=== PATIENT | male | born 1940 | race Caucasian/White ===

== ENCOUNTER 2019-10-07 08:17 | Day surgery (SDC) | payer OTHER, SELFPAY ==
[2019-10-07 09:10] VITALS: BP 124/76; PULSE 67; RESP 20; TEMP 36.5; O2SAT 97
[2019-10-07 09:13] VITALS: BMI 22.6
[2019-10-07] MEDS: PROPARACAINE 0.5% OPHTH SOL 2 DROPS EYE-OP (09:17)
[2019-10-07] MEDS: CATARACT EYE COMPOUND (10 DROPS/SYRINGE) 3 DROPS EYE-OP (09:21)
[2019-10-07 09:27] VITALS: BP 126/72; PULSE 67; RESP 20; TEMP 36.5; O2SAT 97
--- NOTE | 2019-10-07 10:06 | PM.PREOP ---
Pre-operative Note Interval Note History & Physical reviewed/Exam performed by Physician: No Changes to H&P: No
--- NOTE | 2019-10-07 10:06 | PM.OP.1 ---
Operative Date/Time/Diagnoses Pre-op diagnosis: Nuclear Cataract Left eye Post-op diagnosis: same Procedure & Clinicians Surgeon: Silvino Arvizu Anesthesia Type: MAC +/- and Sedation Operative Notes Procedure in detail: Patient brought to the operating suite. Tetracaine drops placed in the left eye. Patient was prepped and draped in sterile manner. Wire lid speculum was placed in the eye. Betadine drops were placed on the eye. This was irrigated. Lidocaine jelly was placed on the eye. A paracentesis port was created with a side-port blade. 0.1 mL 1% preservative free lidocaine was injected into the anterior chamber. The anterior chamber was deepened with viscoelastic. 2.6 mm keratome was used to create a temporal clear corneal incision. Cystotome and Utrata forceps were used to create continuous tear capsulorrhexis. Balanced salt solution was used to hydro dissect the nucleus. The phacoemulsification handpiece was inserted and the nucleus was removed using the stop and chop technique. The irrigation aspiration handpiece was inserted and the remaining cortex was removed. Anterior chamber was deepened with viscoelastic. An Murry ZCB00 intraocular lens with a power of 20.5 was injected into the capsular bag. Irrigation aspiration handpiece was inserted and the remaining viscoelastic was removed. Incision was hydrated with balanced salt solution and found to be leak free with pressure with Weck-Tamela sponges. 0.1 mL Vigamox injected anterior chamber. 0.3 mL Kenalog 10 mg was injected subconjunctivally. Lid speculum was removed. The patient left the operating room in excellent condition. Complications: none Post-operative Condition: stable Disposition: same day surgery
[2019-10-07] MEDS: MOXIFLOXACIN INJ 5 MG/ML VIAL EYE-OP (10:37)
[2019-10-07] MEDS: TRIAMCINOLONE 50 MG/5 ML VIAL INJ (10:37)
[2019-10-07] MEDS: PHENYLEPHRINE/LIDOCAINE VIAL (OR) 0.2 ML EYE-OP (10:37)
[2019-10-07] MEDS: CHONDROIDTIN/SOD HYALURONATE 1.05 ML SYRINGE INTRAOCULA (10:37)
[2019-10-07] MEDS: TETRACAINE 0.5% OPHTH DROPS 4 ML 2 DROPS EYE-OP (10:38)
[2019-10-07] MEDS: BALANCED SALT IRRIG SOLN NO.2 500 ML, EPINEPHrine 1 MG IRR (10:38)
[2019-10-07] MEDS: LIDOCAINE JELLY 2% 5 ML 1 APPLIC TOP (10:38)
[2019-10-07 10:51] VITALS: BP 100/65; PULSE 66; RESP 15; TEMP 36.2; O2SAT 98
== END 2019-10-07 11:04 | disposition home or self-care (01) ==
PROVIDERS: Family Provider Family Medicine; PCP Family Medicine; Visit Provider Ophthalmology
PROC: (CPT 66984; principal; 2019-10-07 10:15)
DX: H25.12 Age-related nuclear cataract, left eye (principal)
CPT/HCPCS: 66984; J0171; J2250; J3010; J3301

== ENCOUNTER 2019-10-21 07:22 | Day surgery (SDC) | payer OTHER, SELFPAY ==
[2019-10-21] MEDS: PROPARACAINE 0.5% OPHTH SOL 2 DROPS EYE-OP (07:50)
[2019-10-21] MEDS: CATARACT EYE COMPOUND (10 DROPS/SYRINGE) 3 DROPS EYE-OP (07:50)
[2019-10-21 07:52] VITALS: BP 112/67; PULSE 58; RESP 15; TEMP 36.4; O2SAT 98
[2019-10-21 07:54] VITALS: BMI 22.5
[2019-10-21 08:00] VITALS: BMI 22.5
[2019-10-21 08:03] VITALS: BP 112/67; PULSE 58; RESP 15; TEMP 36.4; O2SAT 98
--- NOTE | 2019-10-21 09:05 | PM.PREOP ---
Pre-operative Note Interval Note History & Physical reviewed/Exam performed by Physician: No Changes to H&P: No
--- NOTE | 2019-10-21 09:05 | PM.OP.1 ---
Operative Date/Time/Diagnoses Pre-op diagnosis: Nuclear cataract right eye Procedure & Clinicians Procedure: Cataract Surgery Same procedure as scheduled: Yes Surgeon: Silvino Arvizu Anesthesia Type: MAC +/- and Sedation Operative Notes Procedure in detail: Patient brought to the operating suite. Tetracaine drops placed in the right eye. Patient was prepped and draped in sterile manner. Wire lid speculum was placed in the eye. Betadine drops were placed on the eye. This was irrigated. Lidocaine jelly was placed on the eye. A paracentesis port was created with a side-port blade. 0.1 mL 1% preservative free lidocaine was injected into the anterior chamber. The anterior chamber was deepened with viscoelastic. 2.6 mm keratome was used to create a temporal clear corneal incision. Cystotome and Utrata forceps were used to create continuous tear capsulorrhexis. Balanced salt solution was used to hydro dissect the nucleus. The phacoemulsification handpiece was inserted and the nucleus was removed using the stop and chop technique. The irrigation aspiration handpiece was inserted and the remaining cortex was removed. Anterior chamber was deepened with viscoelastic. An Murry ZCB00 intraocular lens with a power of 21.0 was injected into the capsular bag. Irrigation aspiration handpiece was inserted and the remaining viscoelastic was removed. Incision was hydrated with balanced salt solution and found to be leak free with pressure with Weck-Tamela sponges. 0.1 mL Vigamox injected anterior chamber. 0.3 mL Kenalog 10 mg was injected subconjunctivally. Lid speculum was removed. The patient left the operating room in excellent condition. Complications: none Post-operative Condition: stable Disposition: same day surgery
[2019-10-21] MEDS: LIDOCAINE JELLY 2% 5 ML 1 APPLIC TOP (09:26)
[2019-10-21] MEDS: CHONDROIDTIN/SOD HYALURONATE 1.05 ML SYRINGE INTRAOCULA (09:26)
[2019-10-21] MEDS: TRIAMCINOLONE 50 MG/5 ML VIAL INJ (09:27)
[2019-10-21] MEDS: PHENYLEPHRINE/LIDOCAINE VIAL (OR) 0.2 ML EYE-OP (09:27)
[2019-10-21] MEDS: TETRACAINE 0.5% OPHTH DROPS 4 ML 2 DROPS EYE-OP (09:27)
[2019-10-21] MEDS: BALANCED SALT IRRIG SOLN NO.2 500 ML, EPINEPHrine 1 MG IRR (09:28)
[2019-10-21 09:47] VITALS: BP 101/62; PULSE 57; RESP 16; TEMP 36.4; O2SAT 100
== END 2019-10-21 09:52 | disposition home or self-care (01) ==
PROVIDERS: Family Provider Family Medicine; PCP Family Medicine; Visit Provider Ophthalmology
PROC: (CPT 66984; principal; 2019-10-21 09:15)
DX: H25.11 Age-related nuclear cataract, right eye (principal)
CPT/HCPCS: 66984; J0171; J2250; J3010; J3301

== ENCOUNTER 2019-12-13 14:21 | Emergency (ER) | payer MEDICARE, SELFPAY ==
[2019-12-13 14:29] VITALS: BP 128/83; PULSE 70; RESP 72; TEMP 36.6; O2SAT 98
--- NOTE | 2019-12-13 14:33 | DI.RAD.S_ITS ---
PROCEDURE: XR HAND LT MIN 3V INDICATIONS: laceration to thumb and 2nd finger. TECHNIQUE: 3 views of the hand(s) acquired. COMPARISON: None. FINDINGS: Bones: There is a comminuted fracture with soft tissue bone fragments involving the distal phalanx of the left 2nd finger. There is a mild bony injury seen involving the proximal aspect of the distal phalanx of the thumb. Soft tissues: Associated soft tissue injuries are seen. IMPRESSION: Bony injuries are seen involving the distal phalanges of the 1st and 2nd fingers, with associated soft tissue injuries. Dictated by: Giovany Grubbs M.D. on 12/13/2019 at 13:54 Approved by: Giovany Grubbs M.D. on 12/13/2019 at 13:57
--- NOTE | 2019-12-13 15:34 | ED_ITS ---
HPI - Skin/Abscess/Foreign Bdy <ARMAAN Martinez - Last Filed: 12/13/19 22:50> General Chief complaint: Skin/Abscess/Foreign Body Stated complaint: CUT 2 FINGERS WITH TABLE SAW YESTERDAY Time Seen by Provider: 12/13/19 14:45 Source: patient Mode of arrival: Ambulatory Limitations: no limitations History of Present Illness HPI narrative: This is a pleasant 79-year-old male, nonsmoker, who presents to ED with left thumb and 2nd digit injury with nail injury from a table saw yesterday at 2:00 p.m., greater than 24 hour ago. Patient lives in [place]. 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 Right dominant hand. Unsure of last tetanus immunization. Patient is not on anticoagulant currently. No active bleeding noted this time. Patient denies fever, chills, nausea or vomiting but some swelling to affected fingers. Patient states pain is not severe and tolerable since midnight last night after the injury. Patient states he is able to move his finger but stiff and sensation is intact. Related Data Home Medications Medication Instructions Recorded Confirmed omeprazole 20 mg PO Q DAY #0 06/06/11 10/21/19 Previous Rx's Medication Instructions Recorded cephalexin [Keflex] 500 mg PO Q6H 10 Days #40 cap 12/13/19 Allergies Allergy/AdvReac Type Severity Reaction Status Date / Time No Known Drug Allergies Allergy Verified 12/13/19 14:32 Review of Systems <ARMAAN Martinez - Last Filed: 12/13/19 22:50> Review of Systems Narrative: General: Denies fever, chills, fatigue, malaise, sweats. HEENT: Denies sinus pain, ear pain, sore throat, difficulty swallowing, dizzines s. Respiratory: Denies dyspnea, cough, wheezing, hemoptysis, sputum. Cardiovascular: Denies chest pain, palpitations, orthopnea, edema. Gastrointestinal: Denies nausea, vomiting, abdominal pain, diarrhea, constipation, melena. : Denies dysuria, frequency, incontinence, hematuria, urinary retention. Musculoskeletal: see HPI Skin: Denies rash, skin lesions, or other. Neurologic: Denies weakness, headache, numbness, change in speech, confusion, seizures, incoordination. Psychiatric: No concerning psychosocial issues. 12-point review of systems is negative except for those stated above. Patient History <ARMAAN Martinez - Last Filed: 12/13/19 22:50> Medical History Basal cell carcinoma (Acute) GERD (gastroesophageal reflux disease) (Acute) Surgical History History of cataract surgery (Acute) History of hernia repair (Acute) Hx of appendectomy (Acute) Social History household members: spouse Smoking Status: Never smoker Smoking Status: Never smoker alcohol intake frequency: 0-2 drinks per day Substance Use Type: does not use Exam <ARMAAN Martinez - Last Filed: 12/13/19 22:50> Narrative Exam Narrative: General appearance: well developed, well nourished, in no acute distress. Head: normocephalic, atraumatic, no scalp lesions, non-tender. ENT: Hearing grossly intact. Nose without bleeding, purulent discharge, septal hematoma or deviation. Turbinate without erythema or swelling. Facial sinuses nontender to palpate. Mucous membrane moist, no mucosal lesion. Throat without erythema, tonsillar hypertrophy or exudate. Uvula in midline, airway patent. Neck/Thyroid: neck supple, full range of motion, no visible masses or meningeal signs. No JVD, non-tender without lymphadenopathy. Skin: no suspicious rashes, lesions over visible areas. Warm and dry and appropriate color for ethnicity. Heart: no clubbing, no cyanosis, no edema. Lungs: Breathing even and unlabored. No stridor. No accessory muscles used. Able to speak in full sentences. Chest: normal shape and expansion. Abdomen: non-obese, non-distended. Neurologic: alert and oriented. Cognitive exam, W[employer] W[employer]ATOR and PNS grossly intact on informal exam. Psych: good eye contact, normal affect. Initial Vital Signs Initial Vital Signs: Vital Signs Temperature 97.8 F 12/13/19 14:29 Pulse Rate 70 12/13/19 14:29 Respiratory Rate 72 H 12/13/19 14:29 Blood Pressure 128/83 12/13/19 14:29 Pulse Oximetry 98 12/13/19 14:29 Extrem Left upper extremity: wrist and hand Details: abnormal to inspection, neurosensory exam normal Details: radial nerve sensory function normal, tendon exam normal, tenderness Location: of the thumb and of the 2nd digit, vascular exam Details: radial pulse present, normal ROM of fingers (able to flex and extend affected fingers), swelling Location: of the thumb and of the 2nd digit, laceration (L thumb, ulnar aspect L shaped, irregular vertical deep laceration 4cm) and other (avulsion of radial aspect of in radial aspect in distal to middle phalange, deformed partially attached nail); no foreign bodies Right lower extremity: normal to inspection and full ROM <Drew Craig DO - Last Filed: 12/14/19 07:41> Initial Vital Signs Initial Vital Signs: Vital Signs Temperature 97.8 F 12/13/19 14:29 Pulse Rate 70 12/13/19 14:29 Respiratory Rate 72 H 12/13/19 14:29 Blood Pressure 128/83 12/13/19 14:29 Pulse Oximetry 98 12/13/19 14:29 Procedures <ARMAAN Martinez - Last Filed: 12/13/19 22:50> Laceration Repair Laceration 1: Site: hand (thumb) Side (If applicable): left Size (cm): 4 Description: irregular and other (deep L shape, ulnar aspect) Depth: simple, single layer Local Anesthetic: lidocaine 1% and with bicarb Amount of anesthesia used (mL): 4 Pre-repair: wound explored and irrigated extensively Skin layer closed with: nylon Size (cm): 4-0 Number of sutures: 2 Technique: simple, interrupted and other (loosely held due to wound >24 hr) Laceration 2: Site: hand (2nd distal phalange) Side (If applicable): left Size (cm): 1 Description: irregular Local Anesthetic: lidocaine 1% and with bicarb Amount of anesthesia used (mL): 4 Pre-repair: wound explored, irrigated extensively and wound margins re vised (nail removed) Skin layer closed with: nylon Size (cm): 4-0 and other (loosely held) Number of sutures: 2 Technique: simple, interrupted Orthopedic Splinting/Casting Injury #1: Side: left Upper Extremity Injury Location: finger (thumb) Upper Extremity Immobilizer: aluminum form splint Placed by: Nursing Additional Comments: over bulky tubular dressing Injury #2: Side: left Upper Extremity Injury Location: finger (2nd digit) Upper Extremity Immobilizer: aluminum form splint Placed by: Nursing Additional Comments: over bulky tubular dressing Scores <[facility] Raquel[facility]MAAN wilcox - Last Filed: 12/13/19 22:50> GCS [place] coma scale eye opening: Spontaneous [place] coma scale verbal response: Orientated [place] coma scale motor response: Obey commands [place] coma scale total score: 15 Course <[facility] RaquelLAMONT wilcoxP - Last Filed: 12/13/19 22:50> Course Course Narrative: at 1545- Dr. Ware consulted over the phone. Oral Kelfex, splint, loose stiches on thumb, well irrigate wound Orders Ordered: Discontinued Medications Bacitracin (Bacitracin) 1 applic TOP NOW ONE Stop: 12/13/19 16:53 Last Admin: 12/13/19 17:07 Dose: 1 applic Documented by: IVAN Cefazolin Sodium (Keflex 250 Mg Prepack) [facility] Stop: 12/13/19 18:08 Last Admin: 12/13/19 18:22 Dose: Not Given Documented by: IVAN Diphtheria/Tetanus/Acell Pertussis (Adacel) 0.5 ml IM .ONCE ONE Stop: 12/13/19 14:45 Last Admin: 12/13/19 16:04 Dose: 0.5 ml Documented by: IVAN Cefazolin Sodium/Dextrose (Ancef) 2 gm in 100 mls @ 200 mls/hr IV NOW ONE Stop: 12/13/19 15:58 Last Infusion: 12/13/19 16:40 Dose: 0 mls/hr Documented by: Admin: 12/13/19 16:07 Dose: 200 mls/hr Documented by: IVAN Lidocaine/Sodium Bicarbonate (Buffered Lidocaine 10 Ml Syr) 10 ml INJ NOW ONE Stop: 12/13/19 16:51 Last Admin: 12/13/19 17:09 Dose: Not Given Documented by: IVAN Vital Signs Vital signs: Vital Signs - 8 hr 12/13/19 16:14 12/13/19 18:30 Pulse Rate 72 89 Respiratory Rate 16 16 Blood Pressure [Right Arm] 164/74 H Pulse Oximetry 99 98 <Drew Craig DO - Last Filed: 12/14/19 07:41> Orders Ordered: Discontinued Medications Bacitracin (Bacitracin) 1 applic TOP NOW ONE Stop: 12/13/19 16:53 Last Admin: 12/13/19 17:07 Dose: 1 applic Documented by: IVAN Cefazolin Sodium (Keflex 250 Mg Prepack) 1 bottle MISC SEEINSTR ONE Stop: 12/13/19 18:08 Last Admin: 12/13/19 18:22 Dose: Not Given Documented by: IVAN Diphtheria/Tetanus/Acell Pertussis (Adacel) 0.5 ml IM .ONCE ONE Stop: 12/13/19 14:45 Last Admin: 12/13/19 16:04 Dose: 0.5 ml Documented by: IVAN Cefazolin Sodium/Dextrose (Ancef) 2 gm in 100 mls @ 200 mls/hr IV NOW ONE Stop: 12/13/19 15:58 Last Infusion: 12/13/19 16:40 Dose: 0 mls/hr Documented by: Admin: 12/13/19 16:07 Dose: 200 mls/hr Documented by: IVAN Lidocaine/Sodium Bicarbonate (Buffered Lidocaine 10 Ml Syr) 10 ml INJ NOW ONE Stop: 12/13/19 16:51 Last Admin: 12/13/19 17:09 Dose: Not Given Documented by: IVAN Vital Signs Vital signs: Vital Signs - 8 hr 12/13/19 16:14 12/13/19 18:30 Pulse Rate 72 89 Respiratory Rate 16 16 Blood Pressure [Right Arm] 164/74 H Pulse Oximetry 99 98 MDM - Skin/Abscess/Foreign Bdy <ARMAAN Martinez - Last Filed: 12/13/19 22:50> Differential Diagnosis Differential diagnosis: Likely other (deep laceration, finger open fracture, avulsion, nail bed injury) Medical Records Attestation: I reviewed the patient's medical records. Lab Data Attestation: I reviewed the patient's lab results. Result diagrams: 12/13/19 15:37 12/13/19 15:37 Labs: Lab Results 12/13/19 12/13/19 Range/Units 15:37 15:37 WBC 7.7 (4.5-11.0) X10^3/uL RBC 4.95 (4.5-5.9) X10^6/uL Hgb 14.1 (13.5-17.5) g/dL Hct 41.2 (41-53) % MCV 83.2 (80-100) fL MCH 28.5 (26-34) PG MCHC 34.3 (30-36) % RDW 13.5 (11.6-14.8) % Plt Count 215 (150-400) X10^3/uL Neut % (Auto) 57.8 (50-75) % Lymph % (Auto) 27.8 (25-40) % Woodson % (Auto) 10.6 (3-14) % Eos % (Auto) 3.3 (2-4) % Baso % (Auto) 0.5 (0-2) % Neut # (Auto) 4400 (8903-0505) /uL Lymph # (Auto) 2100 (3560-5775) /uL Woodson # (Auto) 800 (0-900) /uL Eos # (Auto) 300 (0-450) /uL Baso # (Auto) 0 (0-100) /uL Sodium 140 (137-145) mmol/L Potassium 4.1 (3.4-5.1) mmol/L Chloride 107 (98-107) mmol/L Carbon Dioxide 25 (22-32) mmol/L BUN 22 H (9-20) mg/dL Creatinine 0.90 (0.66-1.25) mg/dL Estimated GFR > 60.0 (>60) mL/min BUN/Creatinine Ratio 24.4 H (6-22) Glucose 101 (80-110) mg/dL Calcium 9.4 (8.4-10.2) mg/dL Imaging Data XR-hand LT: Radiologist's Impression: [address] [address] XRay Report Signed Patient: Kyle Jovel MMR#: [id number] : 2Acct:[id number] Age/Sex: 79 / MDate of Service: 12/13/19 Loc: ED Accession Number: [id number] Procedure: XR hand LT min 3V Ordering Provider: Drew Craig D.O. PROCEDURE: XR HAND LT MIN 3V INDICATIONS: laceration to thumb and 2nd finger. TECHNIQUE: 3 views of the hand(s) acquired. COMPARISON: None. FINDINGS: Bones: There is a comminuted fracture with soft tissue bone fragments involving the distal phalanx of the left 2nd finger. There is a mild bony injury seen involving the proximal aspect of the distal phalanx of the thumb. Soft tissues: Associated soft tissue injuries are seen. IMPRESSION: Bony injuries are seen involving the distal phalanges of the 1st and 2nd fingers, with associated soft tissue injuries. Dictated by: Giovany Grubbs M.D. on 12/13/2019 at 13:54 Approved by: Giovany Grubbs M.D. on 12/13/2019 at 13:57 MDM Narrative Medical decision making narrative: This is a 79-year-old gentleman who presents to ED with non dominant, left thumb and index finger injury from table so which occurred greater than hours ago from a table saw. Patient's tetanus was updated today. X-ray test on left hand indicates a comminuted fracture with soft tissue fragments in distal phalanx on index finger with mild bony injury in the proximal aspect of the distal phalange of the thumb. Patient was able to flex and extend affected finger and was able to make o sign with intact sensation. Please see procedure note for wound care and loose suture that has been placed on these fingers. Partially attached nail on index finger was removed with Dr. Craig's assistance. Affected wounds were covered with Xeroform and bulky dressing after patient has soaked in Hibiclens mixed water and irrigation with copious amount of normal saline. Affected fingers were splinted on aluminum finger splint. Patient was medicated with IV cefazolin 2 g. Patient discharged to home with wound care instruction. Dr. Ware was consulted over the phone and contact information to [facility] orthopedist provided for patient to follow up. Patient declined strong pain medication at this time. Return precautions were discussed with the patient including infection and patient discharged to home with prepack of Keflex and a prescriptions with remained dose. Patient verbalized understanding and agrees with the treatment plan. <Drew Craig, - Last Filed: 12/14/19 07:41> Lab Data Labs: Lab Results 12/13/19 12/13/19 Range/Units 15:37 15:37 WBC 7.7 (4.5-11.0) X10^3/uL RBC 4.95 (4.5-5.9) X10^6/uL Hgb 14.1 (13.5-17.5) g/dL Hct 41.2 (41-53) % MCV 83.2 (80-100) fL MCH 28.5 (26-34) PG MCHC 34.3 (30-36) % RDW 13.5 (11.6-14.8) % Plt Count 215 (150-400) X10^3/uL Neut % (Auto) 57.8 (50-75) % Lymph % (Auto) 27.8 (25-40) % Woodson % (Auto) 10.6 (3-14) % Eos % (Auto) 3.3 (2-4) % Baso % (Auto) 0.5 (0-2) % Neut # (Auto) 4400 (8840-6944) /uL Lymph # (Auto) 2100 (6322-9285) /uL Woodson # (Auto) 800 (0-900) /uL Eos # (Auto) 300 (0-450) /uL Baso # (Auto) 0 (0-100) /uL Sodium 140 (137-145) mmol/L Potassium 4.1 (3.4-5.1) mmol/L Chloride 107 (98-107) mmol/L Carbon Dioxide 25 (22-32) mmol/L BUN 22 H (9-20) mg/dL Creatinine 0.90 (0.66-1.25) mg/dL Estimated GFR > 60.0 (>60) mL/min BUN/Creatinine Ratio 24.4 H (6-22) Glucose 101 (80-110) mg/dL Calcium 9.4 (8.4-10.2) mg/dL Discharge Plan Departure Patient Disposition: Home Clinical Impression: Open fracture of phalanx of finger of left hand Qualifiers: Encounter type: initial encounter Finger: thumb Phalanx: distal Fracture alignment: nondisplaced Qualified Code(s): S62.525B - Nondisplaced fracture of distal phalanx of left thumb, initial encounter for open fracture Closed fracture of finger of left hand Qualifiers: Encounter type: initial encounter Finger: index finger Phalanx: distal Fracture alignment: displaced Qualified Code(s): S62.631A - Displaced fracture of distal phalanx of left index finger, initial encounter for closed fracture Injury of nail bed of finger of left hand Qualifiers: Encounter type: initial encounter Qualified Code(s): S69.92XA - Unspecified injury of left wrist, hand and finger(s), initial encounter Discharge Date/Time: 12/13/19 18:34 Instructions: DI for Finger Fracture, DI for Nail Bed Injury, DI for Open Fracture Activity Restrictions/Additional Instructions: You have been diagnosed with [ open fracture on your left thumb and skin avulsion on 2nd digit with nail injury. The x-ray shows comminuted fracture with soft tissue bone fragment involving distal 2nd digit and mild bony injury involving proximal aspect of distal thumb on your left hand. You're medicated with IV cefazolin while in ED. your wound has been cleaned very well and loose sutures been placed in and partial nail on 2nd digit has been removed]. What to do: *Take your medications as directed. Please take oral antibiotic medication Keflex 500 mg before to bed tonight. Please take Keflex 4 times a day for 10 days. Please monitor your wound for infection. Please do not get your wound soaked in the water until suture removal. Keep your dressing intact for next 24 hrs. After then, you could remove your dressing, wash with soap and water. Pat dry with clean paper towel and dress it with antibiotic ointment. You can change dressing as needed and daily. Please monitor for signs and symptoms for infection such as increasing redness, swelling, warmth, pain, fever, purulent discharge. If this occurs, please return to ED or follow up with your primary care physician since your wound may be gotten infected. Please follow up with your primary care provider in 2-3 days for recheck wound. Your suture should be removed [ 7-10 ] days. This can be done by your primary provider, walk-in clinic or here in ED. Please keep your wound clean, dry and intact all times. *Follow up with your primary care provider in 2-3 days, call for an appointment. Let them know you were seen in the ED and that we asked you to be seen in follow up. *Return to ED if you have any new, worsening, or concerning symptoms, such as [chest pain, breathing difficulty, unable to tolerate fluids, signs of infection, worsening pain, fever or any other concerns]. Prescriptions: New cephalexin [Keflex] 500 mg capsule 500 mg PO Q6H 10 Days Qty: 40 RF: 0 No Action omeprazole 20 MG tablet,delayed release (DR/EC) 20 mg PO Q DAY Qty: 0 RF: 0 Referrals: [facility] [Provider Group] Quentin Romo MD [Primary Care Provider] - <Drew Craig DO - Last Filed: 12/14/19 07:41> Sign Out Provider Sign Out Attestation: Dr craig: I did evaluate the patient in the department per the request of the APC. I assisted in removal of the finger nail on the index finger.
[2019-12-13 15:40] LABS: Add Manual Diff / Slide Review NO; Basophils Absolute Auto 0 /uL (0-100); Basophils Percent Auto 0.5 % (0-2); Eosinophils Absolute Auto 300 /uL (0-450); Eosinophils Percent Auto 3.3 % (2-4); Hematocrit 41.2 % (41-53); Hemoglobin 14.1 g/dL (13.5-17.5); Lymphocytes Absolute Auto 2100 /uL (1100-4500); Lymphocytes Percent Auto 27.8 % (25-40); Mean Corpuscular HGB Conc 34.3 % (30-36); Mean Corpuscular Hemoglobin 28.5 PG (26-34); Mean Corpuscular Volume 83.2 fL (80-100); Monocytes Absolute Auto 800 /uL (0-900); Monocytes Percent Auto 10.6 % (3-14); Neutrophils Absolute Auto 4400 /uL (1500-7000); Neutrophils Percent Auto 57.8 % (50-75); Platelet Count 215 X10^3/uL (150-400); Red Blood Cell Count 4.95 X10^6/uL (4.5-5.9); Red Cell Distribution Width 13.5 % (11.6-14.8); White Blood Cell Count 7.7 X10^3/uL (4.5-11.0)
[2019-12-13 15:51] LABS: BUN Creatinine Ratio 24.4 (6-22); Blood Urea Nitrogen 22 mg/dL (9-20); Calcium 9.4 mg/dL (8.4-10.2); Carbon Dioxide 25 mmol/L (22-32); Chloride 107 mmol/L (98-107); Estimated Glomerular Filt Rate > 60.0 mL/min (>60); Glucose 101 mg/dL (80-110); HEMOLYSIS < 15 (0-50); Potassium 4.1 mmol/L (3.4-5.1); Sodium 140 mmol/L (137-145)
[2019-12-13] MEDS: TET,DIPH,PERTUSS(ACELL),VAC/PF 0.5 ML SYRINGE IM (16:04)
[2019-12-13] MEDS: CEFAZOLIN 2 GM/100 ML FROZ.PIGGY IV (16:07)
[2019-12-13 16:14] VITALS: BP 164/74; PULSE 64; PULSE 72; RESP 16; O2SAT 98; O2SAT 99
[2019-12-13] MEDS: BACITRACIN OINT 0.9 GM PCKT 1 APPLIC TOP (17:07)
[2019-12-13 18:30] VITALS: PULSE 89; RESP 16; O2SAT 98
== END 2019-12-13 18:34 | disposition home or self-care (01) ==
PROVIDERS: Emergency Provider Nurse Practitioner Family; Family Provider Family Medicine; PCP Family Medicine
DX: S62.525B Nondisplaced fracture of distal phalanx of left thumb, initial encounter for open fracture (principal); S62.631A Displaced fracture of distal phalanx of left index finger, initial encounter for closed fracture; S69.92XA Unspecified injury of left wrist, hand and finger(s), initial encounter; W29.3XXA Contact with powered garden and outdoor hand tools and machinery, initial encounter; Z23 Encounter for immunization
CPT/HCPCS: 12002; 36415; 73130; 80048; 85025; 90471; 96365; 99284; 90715; J0690

== ENCOUNTER → 2021-08-26 09:20 | Outpatient (CLI) | payer MEDICARE, SELFPAY ==
[2021-08-26 11:16] LABS: COVID19 -Nasal RAPID Negative (Negative)
== END ==
PROVIDERS: Family Provider Family Medicine; PCP Family Medicine; Referring Provider Surgery; Visit Provider Surgery
DX: Z01.812 Encounter for preprocedural laboratory examination (principal); Z20.822 Contact with and (suspected) exposure to COVID-19
CPT/HCPCS: 87635

== ENCOUNTER 2021-08-29 11:36 | Day surgery (SDC) | payer MEDICARE, SELFPAY ==
[2021-08-26 08:04] VITALS: BMI 22.7
[2021-08-29] VITALS (9 sets, daily range): BP systolic 135–159; BP diastolic 66–78; PULSE 55–80; RESP 12–16; TEMP 36.2–36.5; O2SAT 93–100; BMI 22.7
[2021-08-29] MEDS: LACTATED RINGERS 1,000 ML 42 ML IV ×2 (11:58→14:31)
--- NOTE | 2021-08-29 13:32 | PM.PREOP ---
Pre-operative Note COVID-19 COVID-19 status: Negative Interval Note History & Physical reviewed/Exam performed by Physician: Yes Changes to H&P: No ASA Class (for procedural sedation): II
[2021-08-29] MEDS: CEFAZOLIN 1 GM VIAL 2 GM IV (13:40)
--- NOTE | 2021-08-29 14:21 | SUR.OPER ---
Supine on padded OR bed, head on pillow, arms padded and tucked at sides, legs uncrossed, safety belt at thigh, tape over blanket over lower legs .
[2021-08-29] MEDS: BUPIVACAINE 0.25% (PF) VIAL 30 ML INJ (14:33)
[2021-08-29] MEDS: EPINEPHrine 1 MG/ML 0.15 MG INJ (14:34)
--- NOTE | 2021-08-29 16:08 | PM.OP.1 ---
Operative Date/Time/Diagnoses Date of procedure: 08/29/21 Pre-op diagnosis: Bilateral recurrent inguinal hernia Post-op diagnosis: other (Left recurrent direct inguinal hernia) Procedure & Clinicians Procedure: Laparoscopic left YUSEF recurrent inguinal hernia repair with mesh Same procedure as scheduled: No Surgeon: Gustavo Rodriguez Click Yes if Unassisted: Yes Anesthesia Type: General Operative Notes Findings: Large direct left recurrent inguinal hernia. No right side hernia Estimated Blood Loss (mL): 15 Procedure in detail: The patient received 3 grams of ancef. The patient was brought to the operating room. General endotracheal anesthesia was induced. A perez catheter was placed. The abdomen was prepped and draped in the usual fashion. A time out was performed. The abdomen was entered via the Federica technique through a 1 cm transverse infra-umbilical incision. The fascia was scored in a transverse direction and the peritoneum was pierced with a peon clamp. The 12 mm Federica port was placed and the abdomen insufflated to 15 mm Hg. Next 5 mm ports were placed in the mid left and right abdomen under direct vision. The patient was placed in trendelenberg. A large direct left inguinal defect was seen. No obvious right sided defect was noted. A left peritoneal flap was created. The dissection was carried down to Supa's ligament medially. The peritoneum and some fatty tissue was dissected out of the defect until the peritoneum was completely reduced from the defect. There was no indirect defect. Old suture was visible near the internal ring. Next a large left Bard 3D max mesh was placed in the myopectineal orifice. The flap was then sutured closed using a 3-0 vicryl. There was one small hole in the peritoneum and this was closed by tacking the sack over the hole to cover the hole. The bed was then flattened. All of the CO2 was released from the abdomen. The abdomen was then re-inflated and observed. The left mesh remained in good position. The 5 mm ports were removed under direct vision. Hemostasis was observed. The 12 mm port was removed. Additional local was injected into the fascia and skin around the incision. The fascia was closed with 2 interrupted 0-vicryl sutures. Skin incisions were closed with 4-0 monocrile. Steri-stips were applied. The patient was awakened and brought to recovery. Post-operative Condition: stable Disposition: PACU
--- NOTE | 2021-08-29 16:55 | SUR.PHASEI ---
surgeon to bedside. discussed case. questions invited and answered. states understanding. updated by physician as well.
== END 2021-08-29 17:35 | disposition home or self-care (01) ==
PROVIDERS: Family Provider Family Medicine; PCP Family Medicine; Referring Provider Surgery; Visit Provider Surgery
PROC: 0YQ64ZZ Repair Left Inguinal Region, Percutaneous Endoscopic Approach (ICD-10-PCS; CPT 49651; principal; 2021-08-29 13:45)
DX: K40.91 Unilateral inguinal hernia, without obstruction or gangrene, recurrent (principal); K21.9 Gastro-esophageal reflux disease without esophagitis
CPT/HCPCS: 49651; C1781; J0171; J0330; J0690; J1100; J2405; J2704; J3010

== ENCOUNTER 2021-08-30 09:47 | Emergency (ER) | payer MEDICARE, SELFPAY ==
[2021-08-30 09:55] VITALS: BP 177/83; PULSE 77; RESP 14; TEMP 37.1; O2SAT 98; BMI 22.4
--- NOTE | 2021-08-30 09:57 | ED_ITS ---
HPI - General Adult General Chief complaint: Urogenital-Male Stated complaint: Can't urinate post surgery Time Seen by Provider: 08/30/21 09:48 Source: patient Mode of arrival: Ambulatory Limitations: no limitations History of Present Illness HPI narrative: Patient is a 80-year-old male. Yesterday underwent a inguinal hernia repair. Was discharged home. Did urinate after surgery per his report. States that last evening did urinate but did not feel like he emptied his bladder and since that time has not been able to urinate. Does have lower abdominal tenderness however he does admit that this could be because of his surgery. No fevers. Has never had a catheter in the past. Does not have any known prostate issues. Afebrile. Was sent over from his surgeon's office for evaluation. Related Data Home Medications Medication Instructions Recorded Confirmed omeprazole 20 mg capsule,delayed 20 mg PO DAILY 08/25/21 08/29/21 release Previous Rx's Medication Instructions Recorded oxycodone 5 mg tablet 5 mg PO Q8H PRN #8 tab 08/29/21 Allergies Allergy/AdvReac Type Severity Reaction Status Date / Time No Known Drug Allergies Allergy Verified 08/30/21 09:55 Review of Systems Constitutional Constitutional: Denies fever(s) Gastrointestinal Gastrointestinal: Reports as per HPI and Reports system reviewed and no additional complaints, except as documented Genitourinary Genitourinary: Reports system reviewed and no additional complaints, except as documented and Reports as per HPI Integumentary/Breasts Skin/Breast: Reports system reviewed and no additional complaints, except as documented Neurologic Neurologic: Reports system reviewed and no additional complaints, except as documented Hematologic/Lymphatic On Anticoagulants: No Patient History Medical History Basal cell carcinoma Bilateral recurrent inguinal hernia GERD (gastroesophageal reflux disease) Surgical History (Updated 08/26/21 @ 08:07 by Carolina Khan RN) History of cataract surgery History of hernia repair Hx of appendectomy Social History household members: spouse Smoking Status: Never smoker alcohol intake: current Smoking Status: Never smoker alcohol intake frequency: 0-2 drinks per day Substance Use Type: does not use Exam Initial Vital Signs Initial Vital Signs: Vital Signs Temperature 98.7 F 08/30/21 09:55 Pulse Rate 77 10/19/21 09:55 Respiratory Rate 14 08/30/21 09:55 Blood Pressure 177/83 H 08/30/21 09:55 Pulse Oximetry 98 08/30/21 09:55 Const General: cooperative, comfortable and well developed [facility] Head: normal to inspection and normocephalic Resp Effort & Inspection: normal respiratory effort Cardio Rate: regular rate GI Palpation: soft, mass (Lower abdomen) and tender (Lower abdomen) Skin Other: Surgical wounds covered with clean bandages consistent with stated surgical history Neuro General: patient alert, patient awake and patient oriented x3 Extrem General: normal to inspection Course Orders Ordered: ED Orders 08/30/21 10:17 Urinalysis and Microscopic Stat Urine Culture Stat Discontinued Medications Lidocaine HCl (Lidocaine 2% (Glydo) 6 Ml Gel) 6 ml TOP NOW ONE Stop: 08/30/21 09:58 Last Admin: 08/30/21 10:21 Dose: 6 ml Documented by: ORALIA Vital Signs Vital signs: Vital Signs - 8 hr 08/30/21 09:55 Temperature 98.7 F Pulse Rate 77 Respiratory Rate 14 Blood Pressure 177/83 H Pulse Oximetry 98 Medical Decision Making Lab Data Lab results reviewed: Yes I reviewed the patient's lab results. Labs: Lab Results 08/30/21 Range/Units 10:17 Urine Color Yellow Urine Appearance Clear Urine pH 6.0 (4.5-8.0) Ur Specific [place] 1.010 (1.000-1.035) Urine Protein Negative (Negative) Urine Glucose (UA) Negative (Negative) g/dL Urine Ketones Negative (NEGATIVE) Urine Occult Blood 3+ H (Negative) Urine Nitrate Negative (Negative) Urine Bilirubin Negative (NEGATIVE) Urine Urobilinogen 0.2 (0.2) E.U./dL Ur Leukocyte Esterase Negative (NEGATIVE) Urine RBC 10-30/hpf H (0-5/HPF) Urine WBC 0-1/hpf (0-5/HPF) Urine Bacteria None seen (None) Ur Culture Indicated? Culture not indicate MDM Narrative Medical decision making narrative: Patient did have approximately 1 L of urine return after placing the Alcantar catheter. Urinalysis does not show any signs of an infection. Had a discussion with the patient regarding options to include leaving the Alcantar in verses removing it and the risks and benefits of each of these decisions. Afterwards he stated that he would like to leave the Alcantar catheter in. He was given follow-up instructions for Urology. He is also going to contact his primary doctor. He was informed to continue to follow the postoperative instructions from the general surgeons with regard to his hernia surgery. He expressed understanding and agreement this plan. Discharge Plan Departure Patient Disposition: Home Clinical Impression: Acute retention of urine Instructions: How to Care for Your Alcantar Catheter -- Male Activity Restrictions/Additional Instructions: Having urinary retention issues after surgery is not a uncommon situation. I recommend you contact the urologist at the number provided below. Also recommend you contact your primary doctor. You will need re-evaluated to have the Alcantar catheter removed sometime within the next week. Continue to follow all of the postoperative instructions given to by the general surgeons. Return to the emergency department for any new or worsening symptoms Prescriptions: No Action omeprazole 20 mg capsule,delayed release(DR/EC) 20 mg PO DAILY RF: 0 oxycodone 5 mg tablet 5 mg PO Q8H PRN (Reason: pain) Qty: 8 RF: 0 Referrals: Amairani Huggins MD [Physician] - Quentin Romo MD [Primary Care Provider] -
--- NOTE | 2021-08-30 09:57 | PC.NURSE ---
Pt unable to urinate since last night,very little last night
[2021-08-30] MEDS: LIDOCAINE 2% (GLYDO) 6 ML GEL TOP (10:21)
[2021-08-30 10:29] LABS: Appearance Urine UA CLEAR; Bilirubin Urine UA NEGATIVE (NEGATIVE); Color Urine UA YELLOW; Glucose Urine UA NEGATIVE (Negative); Ketones Urine UA NEGATIVE (NEGATIVE); Leukocyte Esterase Urine UA NEGATIVE (NEGATIVE); Nitrite Urine UA NEGATIVE (Negative); Occult Blood Urine UA 3+ (Negative); Protein Urine UA NEGATIVE (Negative); Urobilinogen Urine UA 0.2 E.U./dL (0.2)
--- NOTE | 2021-08-30 10:31 | PC.NURSE ---
Patient states he had hernia surgery yesterday, complains today of urine retention. Alcantar cath placed.
[2021-08-30 10:37] LABS: Bacteria Urine None Seen; RBC Urine 10-30/HPF (0-5/HPF); WBC Urine 0-1/HPF (0-5/HPF)
[2021-08-30 11:28] VITALS: BP 143/91; PULSE 69; O2SAT 99
--- NOTE | 2021-08-30 11:28 | PC.NURSE ---
Pt instructed on proper catheter care.
== END 2021-08-30 11:28 | disposition home or self-care (01) ==
PROVIDERS: Emergency Provider Emergency Medicine; Family Provider Family Medicine; PCP Family Medicine
DX: R33.9 Retention of urine, unspecified (principal)
CPT/HCPCS: 51798; 81001; 87086; 99283

== ENCOUNTER 2022-04-01 12:43 | Emergency (ER) | payer MEDICARE, SELFPAY ==
[2022-04-01 12:55] VITALS: BP 137/78; PULSE 59; RESP 16; TEMP 36.2; O2SAT 98; BMI 21.2
--- NOTE | 2022-04-01 13:07 | PC.NURSE ---
left flank pain starting last night. Reports frequency which isn't abnormal for patient. Denies burning. Denies fever, no n/v.
--- NOTE | 2022-04-01 13:22 | DI.CT.S_ITS ---
PROCEDURE: CT KIDNEY URETER BLADDER (KUB) INDICATIONS: HX Kidney stones, left flank pain TECHNIQUE: Axial sections were acquired from the lung bases to the pubic symphysis. Coronal and sagittal reformats were performed. For radiation dose reduction, the following was used: automated exposure control, adjustment of mA and/or kV according to patient size. COMPARISON: None. FINDINGS: Lower thorax: The lung bases are clear. Heart size normal. No hiatal hernia. Liver: Normal in size and attenuation. No contour deformity present. Multiple hepatic low-density structures probably reflect cysts, measuring up to 1.5 cm in the left hepatic lobe. Biliary system: Laminated gallstone noted in the gallbladder lumen. No pericholecystic inflammatory change. No intra or extrahepatic bile duct dilatation. Pancreas: Unremarkable without mass or inflammation evident. Spleen: Normal in size and density. Adrenals: Normal morphology and density. Reproductive system: Prostatic hypertrophy elevates the bladder floor. Urinary system: Normal renal size and attenuation. Right renal cyst measures 1.8 cm. Nonobstructive 2 mm left renal calculus noted. Urinary bladder unremarkable. Gastrointestinal system: The bowel is unremarkable without evidence of bowel obstruction or inflammation. The stomach appears unremarkable. Moderate fecal debris throughout the colon and rectum. Appendix: No findings to suggest acute appendicitis. Peritoneal spaces: No mesenteric or retroperitoneal adenopathy. No free air. No free fluid. Vasculature: The IVC, aorta and iliac vasculature are unremarkable. Abdominal wall: Right inguinal hernia contains fat without bowel involvement Musculoskeletal: Normal bone mineralization. Degenerative disc disease and arthropathy noted in lower lumbar spine. No acute fractures. IMPRESSION: 1. Nonobstructive 2 mm left renal calculus without hydronephrosis or obstructive uropathy. 2. Large amount of fecal debris throughout the colon and rectum without intestinal obstruction. 3. Hepatorenal cysts, and cholelithiasis without cholecystitis. Approved by: João Mohan M.D. on 04/01/2022 at 13:50
[2022-04-01 16:02] VITALS: BP 147/68; PULSE 54; RESP 16; O2SAT 99
--- NOTE | 2022-04-01 18:22 | ED_ITS ---
HPI - Male Genitourinary <Patricia Braxton PA-C - Last Filed: 04/01/22 18:36> General Chief complaint: Urogenital-Male Stated complaint: lower left back pain- hx of kidney stones Time Seen by Provider: 04/01/22 15:35 Source: patient Mode of arrival: Ambulatory History of Present Illness HPI Narrative: Patient is a 81-year-old man presenting with left flank pain for 2 days. He has a history kidney stones and states this pain feels similar to his past symptom. He denies any dysuria, burning with urination, blood in his urine, radiating pain, nausea, vomiting, or fever. He has not taken anything for pain and states that the pain is manageable. He had a hernia repair earlier in the year and was concerned that the symptoms may have to do with a hernia. Related Data Home Medications Medication Instructions Recorded Confirmed omeprazole 20 mg capsule,delayed 20 mg PO DAILY 08/25/21 11/18/21 release Allergies Allergy/AdvReac Type Severity Reaction Status Date / Time No Known Drug Allergies Allergy Verified 04/01/22 12:57 Review of Systems <Patricia Braxton PA-C - Last Filed: 04/01/22 18:36> Review of Systems ROS Unobtainable: All systems reviewed & are unremarkable except as noted in HPI and below Constitutional Constitutional: Denies chills, Denies fatigue, Denies fever(s), Denies headache(s) and Denies weakness Eyes Eyes: Denies change in vision and Denies irritation ENT Ears, Nose, Mouth, and Throat: Denies dizziness, Denies otalgia, Denies headache(s), Denies nasal congestion and Denies sore throat Cardiovascular Cardiovascular: Denies chest pain, Denies lightheadedness and Denies dyspnea Respiratory Respiratory: Denies cough and Denies dyspnea Gastrointestinal Gastrointestinal: Reports abdominal pain, Denies change in bowel habits, Denies diarrhea, Denies nausea and Denies vomiting Genitourinary Genitourinary: Reports as per HPI, Denies hematuria, Denies difficulty urinating, Denies dysuria, Denies dysuria, Reports flank pain and Denies urinary frequency Musculoskeletal Musculoskeletal: Denies back pain, Denies muscle weakness, Denies numbness and Denies tingling Integumentary/Breasts Skin/Breast: Denies pruritus, Denies erythema and Denies rash Neurologic Neurologic: Denies behavioral changes, Denies confusion, Denies dizziness, Denies headache(s), Denies numbness, Denies tingling and Denies weakness Psychiatric Psychiatric: Reports system reviewed and no additional complaints, except as documented, Denies behavioral changes and Denies confusion Endocrine Endocrine: Reports system reviewed and no additional complaints, except as documented, Denies fatigue and Denies flushing Hematologic/Lymphatic Hematologic/Lymphatic: Reports system reviewed and no additional complaints, except as documented Allergic/Immunologic Allergic/Immunologic: Reports system reviewed and no additional complaints, except as documented Patient History <Patricia Braxton PA-C - Last Filed: 04/01/22 18:36> Medical History Abnormal prostate by palpation Acute urinary retention Basal cell carcinoma Benign prostatic hyperplasia Bilateral recurrent inguinal hernia GERD (gastroesophageal reflux disease) Urinary catheter in place Surgical History History of cataract surgery History of hernia repair Hx of appendectomy Social History household members: spouse Smoking Status: Never smoker alcohol intake: current Smoking Status: Never smoker alcohol intake frequency: 0-2 drinks per day Substance Use Type: does not use Exam <Patricia Braxton PA-C - Last Filed: 04/01/22 18:36> Narrative Exam Narrative: GENERAL: 81 year old patient appears stated age. Well-developed patient, in no distress. HEAD: Atraumatic. Normocephalic. EYES: Pupils equal round and reactive. Extraocular motions intact. No scleral icterus. No injection or drainage. ENT: Nose without bleeding, purulent drainage. Throat without erythema, tonsillar hypertrophy or exudate. Airway patent. NECK: Trachea midline. Non tender CARDIOVASCULAR: Regular rate and rhythm without murmurs, gallops, or rubs. RESPIRATORY: Clear to auscultation. Breath sounds equal bilaterally. No wheezes, rales, or rhonchi. GASTROINTESTINAL: Abdomen soft, non-tender, nondistended. EXTREMITIES: No edema or joint tenderness. BACK: Nontender without deformity or crepitance. No flank tenderness. NEURO: AOx3. SKIN: No rash or erythema of visible areas Initial Vital Signs Initial Vital Signs: Vital Signs Temperature 97.1 F L 04/01/22 12:55 Pulse Rate 59 L 04/01/22 12:55 Respiratory Rate 16 04/01/22 12:55 Blood Pressure 137/78 04/01/22 12:55 Pulse Oximetry 98 04/01/22 12:55 <Delonte Sandy DO - Last Filed: 04/03/22 00:11> Initial Vital Signs Initial Vital Signs: Vital Signs Temperature 97.1 F L 04/01/22 12:55 Pulse Rate 59 L 04/01/22 12:55 Respiratory Rate 16 04/01/22 12:55 Blood Pressure 137/78 04/01/22 12:55 Pulse Oximetry 98 04/01/22 12:55 Course <Patricia Braxton PA-C - Last Filed: 04/01/22 18:36> Orders Ordered: ED Orders 04/01/22 13:22 CT kidney ureter bladder (KUB) Stat Vital Signs Vital signs: Vital Signs - 8 hr 04/01/22 12:55 04/01/22 16:02 Temperature 97.1 F L Pulse Rate 59 L 54 L Respiratory Rate 16 16 Blood Pressure 137/78 147/68 H Pulse Oximetry 98 99 <DO Jens Solis Last Filed: 04/03/22 00:11> Orders Ordered: ED Orders 04/01/22 13:22 CT kidney ureter bladder (KUB) Stat Vital Signs Vital signs: Vital Signs - 8 hr 04/01/22 12:55 04/01/22 16:02 Temperature 97.1 F L Pulse Rate 59 L 54 L Respiratory Rate 16 16 Blood Pressure 137/78 147/68 H Pulse Oximetry 98 99 MDM - Male Genitourinary <JEYSON Dixon Last Filed: 04/01/22 18:36> Lab Data Labs: Urine Dip Bedside Urine Glucose Negative Bedside Urine Bilirubin - Negative Bedside Urine Ketone - Negative Urine Specific [place] 1.015 Bedside Urine Occult Blood - Negative Bedside Urine pH 6.0 Bedside Urine Protein - Negative Bedside Urine Urobilinogen - Negative Bedside Urine Nitrite - Negative Bedside Urine Leukocytes - Negative Esterase Imaging Data Abdominal x-ray: Radiologist's Impression: [address] [address] [address] Scan Report Signed Patient: Kyle Jovel MR#: [id number] : 1940 Acct:[id number] Age/Sex: 81 / M Date of Service: 04/01/22 Loc: ED Accession Number: [id number] ?? Procedure: CT kidney ureter bladder (KUB) Ordering Provider: Cherie Olea D.O. PROCEDURE:? CT KIDNEY URETER BLADDER (KUB) ? INDICATIONS:? HX Kidney stones, left flank pain ? TECHNIQUE:? Axial sections were acquired from the lung bases to the pubic symphysis.? Coronal and sagittal reformats were performed.? For radiation dose reduction, the following was used: ?automated exposure control, adjustment of mA and/or kV according to patient size.? ? COMPARISON:? None. ? FINDINGS: ? Lower thorax: The lung bases are clear.? Heart size normal.? No hiatal hernia. ? Liver:? Normal in size and attenuation. No contour deformity present.? Multiple hepatic low-density structures probably reflect cysts, measuring up to 1.5 cm in the left hepatic lobe. ? Biliary system:? Laminated gallstone noted in the gallbladder lumen.? No pericholecystic inflammatory change.? No intra or extrahepatic bile duct dilatation. ? Pancreas:? Unremarkable without mass or inflammation evident. ? Spleen:? Normal in size and density. ? Adrenals:? Normal morphology and density. ? Reproductive system:? Prostatic hypertrophy elevates the bladder floor.? ? Urinary system:? Normal renal size and attenuation.? Right renal cyst measures 1.8 cm.? Nonobstructive 2 mm left renal calculus noted.? Urinary bladder unremarkable. ? Gastrointestinal system:? The bowel is unremarkable without evidence of bowel obstruction or inflammation. The stomach appears unremarkable.? Moderate fecal debris throughout the colon and rectum.? ? Appendix:? No findings to suggest acute appendicitis. ? Peritoneal spaces:? No mesenteric or retroperitoneal adenopathy.? No free air.? No free fluid.? ? Vasculature:? The IVC, aorta and iliac vasculature are unremarkable. ? Abdominal wall:? Right inguinal hernia contains fat without bowel involvement ? Musculoskeletal:? Normal bone mineralization.? Degenerative disc disease and arthropathy noted in lower lumbar spine.? No acute fractures.? ? IMPRESSION: ? 1. Nonobstructive 2 mm left renal calculus without hydronephrosis or obstructive uropathy. ? 2. Large amount of fecal debris throughout the colon and rectum without intestinal obstruction. ? 3. Hepatorenal cysts, and cholelithiasis without cholecystitis. MDM Narrative Medical decision making narrative: Patient is a 81-year-old man presenting with left flank pain for [address] abdomen/pelvis showed a nonobstructive 2mm kidney stone without hydronephrosis. Based on the size of this stone surgical intervention is not indicated. I discussed the findings with the patient and he declined any prescription for pain medication or Zofran and elected to treat with [id number] medication instead. I instructed the patient to stay well hydrated, and to return to the ER with any concerning symptoms such as dysuria, significant blood in urine, increased flank pain, fever, and vomiting. Findings and discharge diagnosis discussed with patient/family followed by verbalization of understanding Return precautions discussed with patient/family whom verbalize understanding. <Delonte Sandy DO - Last Filed: 04/03/22 00:11> Lab Data Labs: Urine Dip Bedside Urine Glucose Negative Bedside Urine Bilirubin - Negative Bedside Urine Ketone - Negative Urine Specific [place] 1.015 Bedside Urine Occult Blood - Negative Bedside Urine pH 6.0 Bedside Urine Protein - Negative Bedside Urine Urobilinogen - Negative Bedside Urine Nitrite - Negative Bedside Urine Leukocytes - Negative Esterase Discharge Plan Departure Patient Disposition: Home Clinical Impression: Nephrolithiasis Instructions: DI for Kidney Stones Activity Restrictions/Additional Instructions: *You have been diagnosed with a 2mm nonobstructing kidney stone. You should drink plenty fluids and take pain medication as needed until the stone passes. Please return to the ER with any burning with urination, difficulty urinating, fever, or worsening flank pain. I hope you feel better soon! *What to do: *Please continue to take your regular medications as directed. [ ] New medication prescriptions sent to your pharmacy: [ ] [ ] New medication written as a paper prescription [X] No new medications given *Please follow up with your primary care provider in 2-3 days, call for an appointment. Let them know you were seen in the Emergency Department and that we ask that you be seen in follow up. We will electronically transmit a record of today's note if your PCP is in our system *If you do not have a primary care provider please contact the [facility] at [phone] and they can help get you set up with a doctor in [facility]. *Return to Emergency Department if you should have any new, worsening or concerning symptoms, such as [fever greater than 101 F, shaking chills, worsening pain, persistent vomiting or other bothersome symptoms] Prescriptions: No Action omeprazole 20 mg capsule,delayed release(DR/EC) 20 mg PO DAILY 0RF Referrals: Quentin Romo MD [Primary Care Provider] - <Delonte Sandy DO - Last Filed: 04/03/22 00:11> Cosign ED Attending Cosignature Attestation: I was immediately available in the department for consultation. This documentation has been reviewed and I agree with assessment and plan. Supervised by Delonte Sandy DO
== END 2022-04-01 16:02 | disposition home or self-care (01) ==
PROVIDERS: Emergency Provider Physician Assistant; Family Provider Family Medicine; PCP Family Medicine
DX: N20.0 Calculus of kidney (principal); Z87.442 Personal history of urinary calculi
CPT/HCPCS: 74176; 81003; 99283

== ENCOUNTER → 2022-11-27 11:13 | Outpatient (CLI) | payer MEDICARE, SELFPAY ==
[2022-11-27 13:30] LABS: COVID19 -Nasal RAPID Negative (Negative)
== END ==
PROVIDERS: Family Provider Family Medicine; PCP Family Medicine; Visit Provider Surgery
DX: Z01.812 Encounter for preprocedural laboratory examination (principal); Z20.822 Contact with and (suspected) exposure to COVID-19
CPT/HCPCS: 87635; C9803

== ENCOUNTER 2022-11-29 10:30 | Observation (INO) | payer MEDICARE, SELFPAY ==
[2022-11-24 08:16] VITALS: BMI 21.8
[2022-11-28] VITALS (14 sets, daily range): BP systolic 120–145; BP diastolic 65–84; PULSE 60–90; RESP 14–18; TEMP 36.1–36.8; O2SAT 93–100; BMI 21.8
[2022-11-28] MEDS: LACTATED RINGERS 1,000 ML 42 ML IV (10:44)
--- NOTE | 2022-11-28 10:51 | PM.HP.1 ---
History of Present Illness History of Present Illness Date Patient Seen: 11/28/22 Time Patient Seen: 10:51 Chief complaint: LAP RIH W/MESH Narrative: Kyle is here today for his laparoscopic right inguinal hernia repair. See the office note for details. Patient History Medical History Abnormal prostate by palpation Acute urinary retention Basal cell carcinoma Benign prostatic hyperplasia Bilateral recurrent inguinal hernia GERD (gastroesophageal reflux disease) Pneumonia Urinary catheter in place Surgical History History of cataract surgery (2020) History of hernia repair Hx of appendectomy Family & Social History Social History: household members spouse Tobacco & Substance use: Smoking Status Never smoker alcohol intake current alcohol intake frequency holiday/special occasion Substance Use Type does not use Meds Home Medications and Allergies Home Medications Medication Instructions Recorded Confirmed Type omeprazole 20 mg capsule,delayed 20 mg PO DAILY 08/25/21 11/28/22 History release sennosides 8.6 mg capsule (senna) 8.6 mg PO BEDTIME 05/23/22 11/28/22 History tamsulosin 0.4 mg capsule (Flomax) 0.4 mg PO DAILY #30 caps 10/25/22 11/28/22 Rx Allergies Allergy/AdvReac Type Severity Reaction Status Date / Time No Known Drug Allergies Allergy Verified 11/28/22 10:23 Exam Vital Signs (past 8 hours): - 11/28/22 10:31 Temperature 97.7 F Pulse Rate 60 Respiratory Rate 14 Blood Pressure 143/68 H Pulse Oximetry 100 Oxygen Delivery Method Room Air Oxygen Delivery Method Room Air Narrative Exam Narrative: Right inguinal hernia Assessment & Plan Assessment and plan (1) Recurrent right inguinal hernia: Status: Acute Plan We will plan for a laparoscopic recurrent right inguinal hernia repair with mesh. He has voided in the preop area. Time Spent With Patient Critical Care time: I spent a total of [] minutes of critical care time on this patient's care today; this time is exclusive of procedural time.
[2022-11-28] MEDS: CEFAZOLIN 2 GM/100 ML PREMIX 100 ML IV (11:35)
[2022-11-28] MEDS: BUPIVACAINE 0.5% W/ EPI (PF) 30 ML VIAL INJ (11:52)
--- NOTE | 2022-11-28 11:56 | SUR.OPER ---
Addendum entered by Shirin St R.N. 11/28/22 12:28: Patient on pink pad positioner intraop. Original Note: Supine on padded OR bed, head on pillow, arms padded and tucked at sides, legs uncrossed, safety belt at thigh, tape over blanket over lower legs .
--- NOTE | 2022-11-28 13:53 | PM.OP.1 ---
Operative Date/Time/Diagnoses Date of procedure: 11/28/22 Time of procedure: 13:53 Pre-op diagnosis: Recurrent right inguinal hernia Post-op diagnosis: same Procedure & Clinicians Procedure: Laparoscopic recurrent right inguinal hernia repair with mesh Same procedure as scheduled: Yes Surgeon: Gustavo Rodriguez Operative Notes Procedure in detail: The patient was given preoperative antibiotics. The patient was brought to the operating room, placed on the table in the supine position with the arms tucked and general anesthesia was induced. No Alcantar was placed. The abdomen was prepped and draped in the usual fashion. A time-out was performed. A 1 cm supraumbilical incision was created and dissection was carried down to the fascia. The fascia was grasped with a Monica clamp to elevate the abdominal wall. The fascia was scored transversely with cautery. A Peon clamp was used to santos the peritoneum. The Federica port was placed and the abdomen was insufflated to 15 mmHg. The camera was inserted, there was no evidence of any injury from the entry. There was a recurrent right inguinal hernia with a peritoneal sac along the medial aspect of the direct space. 5 mm ports were placed under direct vision in the mid left and mid right abdomen. The patient was positioned in Trendelenburg. We created right peritoneal flap. The peritoneum was dissected off the vas deferens. Prolene suture was visible at the internal ring. There was no indirect defect. Dissection was carried medially to the edge of the left-sided mesh and a defect was noted just to the right of the medial aspect of the left mesh. There was also a second small fat containing defect in the floor near another Prolene stitch. Once the pocket was sufficiently dissected a large right Bard mesh was brought in and placed over the defects with the medial edge overlapping with the left-sided mesh by 2-3 cm. We then closed the peritoneal flap with a running 3-0 barbed suture. We took one last look around the abdomen and saw no other abnormalities. The suture was removed and accounted for. The 5 mm ports were removed under direct vision. The abdomen was desufflated. The Federica port was removed. Additional local was injected into the fascia and the infraumbilical fascial incision was closed with 2 interrupted 0 Vicryl sutures. The skin incisions were closed with 4 Monocryl, Steri-Strips and Band-Aids. EBL: 30 mL Post-operative Disposition: PACU
[2022-11-28] MEDS: ONDANSETRON 4 MG/2 ML INJ IV (14:33)
--- NOTE | 2022-11-28 14:35 | SUR.PHASEII ---
pt staes he has nausea. sipping on gingerale and IV zofran given. will continue to monitor
--- NOTE | 2022-11-28 14:47 | SUR.PHASEII ---
Pt nauseous with movement and sitting up on the side of the bed. Cold washvcloth, small bites of cracker and gingerale tolerated. nausea improving. updated as to why pt still in recovery.
--- NOTE | 2022-11-28 15:27 | SUR.PHASEII ---
Pt with nausea and emesis x1. Being given 25mg IM Ephedrine. Pt still lightheaded and weak, nauseous with any movement.
[2022-11-28] MEDS: ePHEDrine 50 MG/ML VIAL 25 MG IM (15:31)
--- NOTE | 2022-11-28 15:36 | SUR.PHASEII ---
at bedside. Pt was given IM ephedrine. Sitting comfortably in bed. HR 70 BP 148/77. Nausea subsiding. Will continue to monitor and reassess in 30 mins.
--- NOTE | 2022-11-28 16:04 | SUR.PHASEII ---
Bladder scan >405mL. Pt ambulated with assistance to bathroom. Attempting to void on his own. Having discussions with patient and regarding possible admission overnight. Pt states he feels whipped. Very weak and unsure of going home.
--- NOTE | 2022-11-28 16:09 | SUR.PHASEII ---
Patient still nauseated and feeling weak. Patient also unable to void after attempting. Bladder scan [address] Rodriguez of findings. Per Dr Rodriguez, patient will be admitted overnight for observation. Per Dr Rodriguez, insert 2-way indwelling perez catheter now. Notified patient and of plan of care. Notified care management assistant of need for inpatient bed. Dr Rodriguez to write orders for admission when available.
--- NOTE | 2022-11-28 16:20 | SUR.PHASEII ---
Alcantar inserted without incident. Resulting in 450mL, abdominal discomfort mildly relieved.
[2022-11-28] MEDS: KETOROLAC 30 MG/ML VIAL 15 MG IV (22:14)
[2022-11-28] MEDS: SENNOSIDES 8.6 MG TABLET PO (22:14)
[2022-11-29 00:30] VITALS: BP 107/58; PULSE 85; RESP 18; TEMP 36.6; O2SAT 98
[2022-11-29 04:00] VITALS: BP 111/54; PULSE 69; RESP 17; TEMP 36.3; O2SAT 96
[2022-11-29] MEDS: PANTOPRAZOLE DR 20 MG TABLET PO (05:56)
--- NOTE | 2022-11-29 08:56 | PM.DS.1 ---
History of Present Illness History of Present Illness Chief complaint: LAP RIH W/MESH Narrative: Kyle is here today for his laparoscopic right inguinal hernia repair. See the office note for details. Discharge Providers Provider Discharge Date: 11/29/22 Primary care physician: Samia Kapoor MD Consults: 11/28/22 17:25 Consult to Discharge Planning Routine Comment: Discharge provider: Gustavo Rodriguez MD Summary Hospital Course Discharge Diagnosis: Urinary retention Hospital Course: Kyle was admitted to the floor overnight because of nausea and urinary retention. By morning his symptoms have resolved. He was discharged with a leg bag. He will be scheduled to see a urologist as an outpatient. Exam Vital Signs (past 8 hours): - 11/29/22 04:00 Temperature 97.4 F L Pulse Rate 69 Respiratory Rate 17 Blood Pressure 111/54 L Pulse Oximetry 96 Oxygen Flow Rate 0 Oxygen Delivery Method Room Air Oxygen Flow Rate 0 PFSH Medical History Abnormal prostate by palpation Acute urinary retention Basal cell carcinoma Benign prostatic hyperplasia Bilateral recurrent inguinal hernia GERD (gastroesophageal reflux disease) Pneumonia Urinary catheter in place Surgical History History of cataract surgery (2020) History of hernia repair Hx of appendectomy Social History household members: spouse Smoking Status: Never smoker alcohol intake: current Discharge Plan Discharge Plan Patient Disposition: Home Provider Discharge Comment: No lifting greater than 20 lb for 2 weeks. Okay to remove the Band-Aids and shower after 24 hours. Leave the Steri-Strips on until they start to peel off in 1-2 weeks. Discharge orders & Medications Discharge Orders: Discharge (Order); Ordered 11/29/22 Ordered By: Gustavo Rodriguez Prescriptions: New hydrocodone-acetaminophen 5-325 mg tablet 1 tab PO Q8H PRN (Reason: pain) Qty: 10 0RF Continued tamsulosin [Flomax] 0.4 mg capsule 0.4 mg PO DAILY Qty: 30 0RF omeprazole 20 mg capsule,delayed release(DR/EC) 20 mg PO DAILY senna 8.6 mg capsule 8.6 mg PO BEDTIME Follow up/Referrals: Samia Kapoor MD [Primary Care Provider] - Visit Report/Discharge Packet Instructions: DI for Hernia Repair, DI for Laparoscopy, [facility]: Wound Care Stand Alone Forms: Surgery Discharge Discharge Data Primary Care Provider: Samia Kapoor Attending Provider: Gustavo Rodriguez Quality VTE Deep Vein Thrombosis/Pulmonary Embolism Present on Admission: No
[2022-11-29] MEDS: TAMSULOSIN 0.4 MG CAPSULE PO (09:56)
[2022-11-29 10:15] VITALS: BP 123/61; PULSE 64; RESP 16; TEMP 36.7; O2SAT 98
--- NOTE | 2022-11-29 12:32 | CM.DANOTE ---
Initial Discharge Assessment Note: Case reviewed, met with patient. Introduced self and role. Payer: [employer] M[employer] and self pay A/O 82 year old male admitted for planned right hernia repair on 11/28/22. Patient is POD#1 and has discharge orders. He lives at home with his spouse on [address] and is independent. She will be arriving soon for transport. They will stay in a motel here for a few days before returning to the [place]. Plan: Discharge home with spouse. [facility] Discharge Planning/Care Management Advanced directive, confirm from FAMILY Start: 11/28/22 19:26 Freq: Q24H Status: Active Protocol: Document 11/28/22 19:26 AGW (Rec: 11/29/22 01:19 AGW [id number]) Advance Directive, confirm on record Time 19:00 Person contacted patient Copy received No CM Discharge Assessment Start: 11/29/22 12:29 Freq: Status: Active Protocol: Document 11/29/22 12:30 (Rec: 11/29/22 12:32 [id number]) Discharge Planning Assessment Assigned Electronics Teacher Lata Figueroa RN/DCP Advance Directives? Yes Advance Directives on File No History Provided By Patient Prior Living Arrangements House Household Members spouse Type of transporation used prior to Relies on Others admit Independent with ADL's Yes Is patient alert and oriented? Yes Needs Assistance With Managing Medications,Home Chores / Shopping Caregiver for Another No Barriers to Discharge No Discharge Plan Home Referrals Initiated None needed Review Status In Process Next Review Type Continued Stay Review Pre-Anesthesia Assessment Start: 11/23/22 15:21 Freq: Status: Complete Protocol: Document 11/24/22 08:16 CAB (Rec: 11/23/22 15:25 CAB [id number]) Pre-Anesthesia Assessment Patient Information Reviewed Via Chart Review Comment COVID screen @ 11/27/22 Primary Care Provider Jessenia Holguin Seen Specialist in Last 12 Months Yes Specialist Seen General surgeon,Urologist Primary Language [place] Island[place] Preferred Language [place] Slip Cover Cutter Required No Height 187.96 cm Weight 77.111 kg Body Mass Index (BMI) 21.8 Hearing Ability Normal Visual Assist Glasses Dentition Type Full- Upper & Lower Hx Anesthesia Reactions No Hx Family Anesthesia Reaction No Hx Malignant Hyperthermia No Hx Blood Transfusions No Hx Blood Transfusion Reaction No Anesthesia Review Requested No 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 No Does patient have UGARTE/SOB No Hx Sleep Apnea No CPAP/BIPAP use not prescribed Currently Taking a Beta Supa No Hx Chest Pain No Hx SOB No Hx Syncope or Dizziness No Anti-Coagulant Therapy No Cardiac Testing No Hx Pacemaker/ICD No Pacemaker Rep Required? No Gastrointestinal Symptoms Constipation,Reflux Bladder Pattern Frequency,Urgency Urinary Catheter Present No Hx Urinary Self Catheterization No Diabetes No Presence of External or Internal Medical Yes: Bilat IOLs Devices Received a COVID vaccine? Yes Marital Status Lives With spouse Patient Discharge Plan Description Return Home Comment Lives on [place] Advance Directives? 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
--- NOTE | 2022-11-29 13:05 | PC.NURSE ---
Discharge note: at bedside. Reminded pt and that surgeon sent referral to Dr. Lopez at urology. Provided phone number to urology and encouraged to call urology today or tomorrow to schedule a follow up and to call [facility] if urology does not have the referral that was sent. Educated pt on catheter care, pt going home with indwelling perez catheter per provider order. Provided leg bag to patient and switched from perez bag to leg bag per patient request. Provided perez bag to patient for night use and demonstrated clean technique for changing bags over. Provided alcohol swabs for cleaning perez. Went over discharge packet, education on pain medication use and increasing fluids, fiber, and PRN stool softeners. IV discontinued by PCT. Pt discharged home via w/c to private vehicle with .
== END 2022-11-29 12:45 | disposition home or self-care (01) ==
LOC: OR 14:48 → AC 14:48
PROVIDERS: Admitting Provider Surgery; Family Provider Family Medicine; PCP Family Medicine; Referring Provider Surgery; Visit Provider Surgery
PROC: 0YQ54ZZ Repair Right Inguinal Region, Percutaneous Endoscopic Approach (ICD-10-PCS; CPT 49651; principal; 2022-11-28 11:15)
DX: K40.91 Unilateral inguinal hernia, without obstruction or gangrene, recurrent (principal)
CPT/HCPCS: 49651; G0378; J0690; J1885; J2405; J2704; J3010

== ENCOUNTER 2022-12-02 10:33 | Emergency (ER) | payer MEDICARE, SELFPAY ==
[2022-11-28 18:00] VITALS: BMI 21.8
--- NOTE | 2022-12-02 10:52 | ED_ITS ---
HPI - Male Genitourinary General Chief complaint: Urogenital-Male Stated complaint: cath is came out Time Seen by Provider: 12/02/22 10:51 Source: patient, RN notes reviewed and old records reviewed Mode of arrival: Ambulatory Limitations: no limitations History of Present Illness HPI Narrative: This is an 82-year-old male who had hernia repair approximately a week ago here with Dr. Rodriguez. Patient states his incision appears to be healing well. He is not having any crease abdominal pain. Patient states that his catheter slipped out today. He states no pain he had gotten up and noted that it was not really draining he felt like he needed to urinate he went to the bathroom and had slid out and he urinated without issue. He states this happened about an hour prior to arrival he has urinated since then it feels like he is emptying his bladder well. He denies fevers or chills. No nausea or vomiting. He states he is passing gas regularly although he has not had a bowel movement since his surgery. He states he is feeling slightly bloated. He denies any dysuria urgency or frequency since his catheter fell out. Patient denies any warmth redness or skin changes. He states he was supposed to have his catheter out in the next week with Dr. Lopez. He is has follow-up scheduled with Dr. Rodriguez. His bladder scan said showed 45 mL. He is taking senna, MiraLax drinking prunes and been drinking coffee and water. We did discuss that he can increase his ambulation with leisurely stools which he is happy to do so. He does live on [address] but states he plans to spend the night at a family member's house in case he ends up having any retention or issues. Related Data Home Medications Medication Instructions Recorded Confirmed omeprazole 20 mg capsule,delayed 20 mg PO DAILY 08/25/21 11/28/22 release sennosides 8.6 mg capsule (senna) 8.6 mg PO BEDTIME 05/23/22 11/28/22 Previous Rx's Medication Instructions Recorded hydrocodone 5 mg-acetaminophen 325 1 tab PO Q8H PRN pain #10 tabs 11/28/22 mg tablet tamsulosin 0.4 mg capsule (Flomax) 0.4 mg PO DAILY #30 caps 12/01/22 Allergies Allergy/AdvReac Type Severity Reaction Status Date / Time No Known Drug Allergies Allergy Verified 11/28/22 10:23 Review of Systems Review of Systems ROS Unobtainable: All systems reviewed & are unremarkable except as noted in HPI and below Patient History Medical History Abnormal prostate by palpation Acute urinary retention Basal cell carcinoma Benign prostatic hyperplasia Bilateral recurrent inguinal hernia GERD (gastroesophageal reflux disease) Pneumonia Urinary catheter in place Surgical History History of cataract surgery (2020) History of hernia repair Hx of appendectomy Social History household members: spouse Smoking Status: Never smoker alcohol intake: current Smoking Status: Never smoker alcohol intake frequency: holidays/special occasions only Substance Use Type: does not use Exam Narrative Exam Narrative: GENERAL: Alert and oriented x three, elderly male in mild distress. HEENT: Head normocephalic, atraumatic, EOMI, pupils reactive, face symmetric, moist mucous membranes NECK: Supple, full range of motion CARDIOVASCULAR: Regular rate and rhythm without murmurs, rubs or gallops. RESPIRATORY: Breath sounds equal bilaterally, no wheezes rales or rhonchi. ABDOMEN: Soft, nontender. Normoactive bowel sounds all 4 quadrants. No guarding or rebound, rigidity, no mass, patient has 3 small incisions across the mid abdomen which are clean dry and intact healing well. Steri-Strips are in place and were not removed. No warmth, erythema or other skin changes. No drainage. : No CVA tenderness. Male: normal external examination, no penile discharge or lesions, testicles non-tender, cremasteric reflex intact, no inguinal hernias noted. EXTREMITIES: Normal range of motion, no clubbing or edema. Neurovascularly intact NEUROLOGICAL: Cranial nerves II through XII grossly intact. Moving all extremities SKIN: Warm, dry, no petechiae, no rashes or lesions. Initial Vital Signs Initial Vital Signs: Vital Signs Temperature 98.0 F 12/02/22 10:56 Pulse Rate 69 12/02/22 10:56 Respiratory Rate 18 12/02/22 10:56 Blood Pressure 148/71 H 12/02/22 10:56 Pulse Oximetry 100 12/02/22 10:56 Oxygen Delivery Method 12/02/22 10:56 Course Vital Signs Vital signs: Vital Signs - 8 hr 12/02/22 10:56 Temperature 98.0 F Pulse Rate 69 Respiratory Rate 18 Blood Pressure 148/71 H Pulse Oximetry 100 Oxygen Delivery Method Room Air MDM - Male Genitourinary MDM Narrative Medical decision making narrative: This is an 82-year-old male who states his urinary catheter came out. It was placed and left in place after hernia repair surgery on November 28. States it slid out today he did not have any pain he has not had any bleeding he has urinated since and does not have any sensation of difficulty emptying. Patient had 45 mL on bladder scan. Patient does note he has not had any bowel movements but is passing gas regularly. His belly is soft nondistended he has not had any nausea or vomiting and abdominal incision is healing well. He states his symptoms seem to be improving and he is using appropriate measures to help stool. Discussed continuing these, adding some ambulation gently to his current regimen. Return precautions discussed signs and symptoms to watch for in terms of constipation/bowel obstruction as well as urinary retention. Discharge Plan Departure Patient Disposition: Home Clinical Impression: Dislodged Alcantar catheter Activity Restrictions/Additional Instructions: Please follow-up with urology if having any persistent issues. Please return if you feel your not emptying her bladder or having any difficulty with urination or signs of retention. Continue your current regimen to help you stool, I would recommend also increasing some ambulation. You may find it helpful to add a glycerin suppository once or twice daily. Please return for fevers, signs of urinary retention difficulty emptying your bladder, abdominal pain, sense of dysuria, frequency, if you are not having any bowel movements without passing any gas, new abdominal pain, fevers or chills, nausea or vomiting or any signs of infection at your incision sites or other new or concerning changes. Prescriptions: No Action tamsulosin [Flomax] 0.4 mg capsule 0.4 mg PO DAILY Qty: 30 0RF omeprazole 20 mg capsule,delayed release(DR/EC) 20 mg PO DAILY hydrocodone-acetaminophen 5-325 mg tablet 1 tab PO Q8H PRN (Reason: pain) Qty: 10 0RF senna 8.6 mg capsule 8.6 mg PO BEDTIME Referrals: Gustavo Rodriguez MD [Physician] - Samia Kapoor MD [Primary Care Provider] - Stand Alone Forms: Patient Portal/API
[2022-12-02 10:56] VITALS: BP 148/71; PULSE 69; RESP 18; TEMP 36.7; O2SAT 100; BMI 21.8
[2022-12-02 11:03] VITALS: BP 146/70; PULSE 80; RESP 18; O2SAT 98
== END 2022-12-02 11:24 | disposition home or self-care (01) ==
PROVIDERS: Emergency Provider Emergency Medicine; Family Provider Family Medicine; PCP Family Medicine
DX: T83.028A Displacement of other urinary catheter, initial encounter (principal)
CPT/HCPCS: 51798; 99282

== ENCOUNTER → 2022-12-13 10:10 | Outpatient (CLI) | payer MEDICARE, SELFPAY ==
[2022-11-28 18:00] VITALS: BMI 21.8
== END ==
PROVIDERS: Family Provider Family Medicine; PCP Family Medicine; Visit Provider Urology
DX: R33.8 Other retention of urine (principal); T83.021A Displacement of indwelling urethral catheter, initial encounter
CPT/HCPCS: 87086

== ENCOUNTER 2022-12-26 13:04 | Day surgery (SDC) | payer MEDICARE, SELFPAY ==
[2022-11-28 18:00] VITALS: BMI 21.8
[2022-12-21 14:53] VITALS: BMI 21.8
[2022-12-26] MEDS: LACTATED RINGERS 1,000 ML 21 ML IV (13:18)
[2022-12-26 13:41] VITALS: BP 134/73; PULSE 61; RESP 16; TEMP 36.4; O2SAT 100; BMI 21.8
--- NOTE | 2022-12-26 14:13 | PM.PREOP ---
Pre-operative Note COVID-19 COVID-19 status: Not tested Criteria for continued procedure: Delay expected to result in less-positive ultimate med/surg outcome and Non-surgical alternatives not available or appropriate per current SOC Interval Note History & Physical reviewed/Exam performed by Physician: Yes Changes to H&P: No
[2022-12-26] MEDS: CEFAZOLIN 2 GM/100 ML PREMIX 100 ML IV (14:50)
--- NOTE | 2022-12-26 15:13 | P.OP_ITS ---
Procedure & Clinicians Procedure: Cystolitholapaxy and removal of stone Same procedure as scheduled: Yes Surgeon: Daryl Lopez Click Yes if Unassisted: Yes Anesthesia Type: General Operative Notes Findings: Urethral meatus and urethra normal. Sphincter is well coapted mucosa is normal throughout. Prostate shows moderate obstructive character. There is a somewhat elevated bladder neck ureteral orifices in normal position with clear efflux. The single dark stone as noted on the bladder floor. At the end of the procedure the stone and all its fragments had been washed out. A 24 Indian 5 cc Alcantar catheter was left in place with 15 cc in the balloon. No other abnormality was noted in the bladder. Stone was forwarded for pathologic compositional analysis. Closure Type: not applicable Specimen(s): other (Stone and any fragments for compositional analysis) Applied: catheter ([address] 5 cc Alcantar catheter with 15 cc in the balloon) Estimated Blood Loss (mL): 5 Blood products transfused: none Procedure in detail: Procedure in detail: After informed consent was obtained, the patient was identified and brought to the operating room. Once in the operating room the placed was placed in a supine position on the operative table where anesthesia was induced maintained. Showing an adequate level of anesthesia the patient was then transitioned to the lithotomy position where he was prepped, draped, prepared for Transurethral procedure. After prepping draping time-out ensuring an adequate level of anesthesia the 22 Indian cystoscope was passed through the urethra prostate and in the bladder were cystoscopy was performed. The mechanical lithotrite was then inserted and the stone was grasped and ?crunched. The largest fragment was then grasped and removed in its entirety to be sent for compositional analysis. The bladder was then washed and all dust and fragments were removed and collected. The bladder was then again washed and because of the disturbance of the prostate it was decided that it would be best to place a Alcantar catheter at least overnight 24 Indian [address] was passed through the urethra and into the prostate with aid of a catheter g uide. Balloon was filled with 15 cc of sterile water and placed to gravity drainage at this time the patient was awakened having tolerated the procedure well to be transferred to the postanesthesia care unit for recovery. There were no complications Complications: none Post-operative Condition: stable Disposition: PACU Plan for aftercare: Discharge to home to follow up my office in the morning for voiding trial
[2022-12-26 15:15] VITALS: BP 134/65; PULSE 69; RESP 17; TEMP 36.3; O2SAT 98
[2022-12-26 15:20] VITALS: BP 119/71; PULSE 61; RESP 16; O2SAT 97
--- NOTE | 2022-12-26 15:24 | SUR.OPER ---
Lithotomy on padded OR bed, head on pillow, arms secured on padded arm boards at <90 degrees abduction. Legs secured in padded yellow fins stirrups.
[2022-12-26 15:35] VITALS: BP 130/74; PULSE 61; RESP 13; TEMP 36.2; O2SAT 99
[2022-12-30 12:12] LABS: Ca oxalate monohydr 100 % (.); Size 12x8 mm (.)
== END 2022-12-26 15:57 | disposition home or self-care (01) ==
PROVIDERS: Family Provider Family Medicine; PCP Family Medicine; Referring Provider Urology; Visit Provider Urology
PROC: 0TCB8ZZ Extirpation of Matter from Bladder, Via Natural or Artificial Opening Endoscopic (ICD-10-PCS; CPT 52317; principal; 2022-12-26 14:30)
DX: N21.0 Calculus in bladder (principal)
CPT/HCPCS: 52317; 82365; J0690; J2704; J3010

== ENCOUNTER → 2023-08-01 10:00 | Outpatient (CLI) | payer MEDICARE, SELFPAY ==
[2022-11-28 18:00] VITALS: BMI 21.8
--- NOTE | 2023-08-01 10:02 | DI.RAD.S_ITS ---
PROCEDURE: XR KUB INDICATIONS: Urinary calculi TECHNIQUE: One view of the abdomen acquired. COMPARISON: [facility], CT, CT KIDNEY URETER BLADDER (KUB), 04/01/2022, 13:17. FINDINGS: Gaseous distension of small bowel and colon. Large amount of stool present in the colon. Enteric gas and stool limited evaluation of the kidneys. No definite or obvious renal stone identified radiographically. IMPRESSION: No renal stone identified radiographically. CT KUB could be obtained if clinically indicated. Gaseous distension of small and large bowel, nonspecific. Large amount of stool present in the colon. Dictated by: Minh Donnelly M.D. on 08/01/2023 at 14:24 Approved by: Minh Donnelly M.D. on 08/01/2023 at 14:26
== END ==
PROVIDERS: Family Provider Family Medicine; PCP Family Medicine; Referring Provider Urology; Visit Provider Urology
DX: N21.0 Calculus in bladder (principal); N42.9 Disorder of prostate, unspecified; R33.9 Retention of urine, unspecified; Z87.448 Personal history of other diseases of urinary system
CPT/HCPCS: 51798; 74018; 81002; 99214

== ENCOUNTER → 2024-01-29 14:07 | Outpatient (CLI) | payer MEDICARE, SELFPAY ==
[2022-11-28 18:00] VITALS: BMI 21.8
--- NOTE | 2024-01-29 14:08 | DI.RAD.S_ITS ---
PROCEDURE: XR KUB INDICATIONS: Bladder stones TECHNIQUE: One view of the abdomen acquired. COMPARISON: [facility], CR, XR KUB, 08/01/2023, 10:13. FINDINGS: Surgical changes and devices: None. Bowel: Bowel gas pattern is nonobstructive. Large amount of fecal matter throughout the colon is seen. No gross free air. Soft tissues: There is suggestion of small calcification projecting in left renal fossa measures 7 mm in size. Visualized solid organ contours appear normal in size. Bones: No suspicious bony lesions. IMPRESSION: Suggestion of possible left renal calculus. Moderate constipation. No gross free air. Dictated by: Pascual Soriano M.D. on 01/29/2024 at 17:43 Approved by: Pascual Soriano M.D. on 01/29/2024 at 17:48
== END ==
PROVIDERS: Family Provider Family Medicine; PCP Family Medicine; Referring Provider Urology; Visit Provider Urology
DX: K59.00 Constipation, unspecified (principal); Z87.448 Personal history of other diseases of urinary system
CPT/HCPCS: 74018

== ENCOUNTER → 2024-02-18 13:54 | Outpatient (CLI) | payer MEDICARE, SELFPAY ==
[2022-11-28 18:00] VITALS: BMI 21.8
--- NOTE | 2024-02-18 13:55 | DI.CT.S_ITS ---
PROCEDURE: CT ABDOMEN WO CON INDICATIONS: History of urinary calculi rule out left renal calculus TECHNIQUE: After the administration of oral contrast, 5 mm thick sections acquired from the diaphragms to the iliac crests. 5 mm coronal and sagittal reformats were then performed. For radiation dose reduction, the following was used: automated exposure control, adjustment of mA and/or kV according to patient size. COMPARISON: [facility], CR, XR KUB, 01/29/2024, 14:14. [facility], CT, CT KIDNEY URETER BLADDER (KUB), 04/01/2022, 13:17. FINDINGS: Image quality: Diagnostic. Lower Chest: No significant findings. ABDOMEN: Liver: Multiple hepatic cysts. Gallbladder: Gallstones. Question gallbladder wall thickening. Biliary ducts: Unremarkable. Pancreas: Unremarkable. Spleen: Size is within normal limits. Adrenal Glands: No adrenal nodules. Kidneys and Ureters: No hydronephrosis. Right low-density cyst is similar. No contour-deforming mass. Punctate nonobstructing right kidney stone. Punctate nonobstructing left kidney stone. Stomach and Bowel: Normal colonic caliber, without significant wall thickening. Prominent stool in the colon. Peritoneum: No abnormal intraperitoneal fluid. No free air. Ventral Wall: No hernia. Abdominal Nodes: No retroperitoneal or mesenteric adenopathy by size criteria. Vessels: Aorta and inferior vena cava are normal in size. Bones: No aggressive osseous abnormality. IMPRESSION: 1. No hydronephrosis. 2. A nonobstructing kidney stone in each kidney. 3. Gallstones. Possible gallbladder wall thickening. Gallbladder ultrasound could be considered for further evaluation. 4. Prominent stool in the colon suggesting constipation. Dictated by: Rob Melgoza M.D. on 02/18/2024 at 16:14 Approved by: Rob Melgoza M.D. on 02/18/2024 at 16:21
== END ==
LOC: CT 13:54
PROVIDERS: Family Provider Family Medicine; PCP Family Medicine; Referring Provider Urology; Visit Provider Urology
DX: N20.0 Calculus of kidney (principal); N28.1 Cyst of kidney, acquired; K76.89 Other specified diseases of liver; K80.20 Calculus of gallbladder without cholecystitis without obstruction
CPT/HCPCS: 74150

== ENCOUNTER 2024-03-22 20:23 | Emergency (ER) | payer MEDICARE, SELFPAY ==
[2022-11-28 18:00] VITALS: BMI 21.8
[2024-03-22 20:25] VITALS: BP 139/71; PULSE 64; RESP 18; TEMP 36.9; O2SAT 99; BMI 21.8
[2024-03-22] MEDS: valACYclovir 500 MG TABLET 1000 MG PO (23:48)
--- NOTE | 2024-03-23 00:55 | ED.SKABFB ---
HPI - Skin/Abscess/Foreign Bdy General Chief complaint: Skin/Abscess/Foreign Body Stated complaint: rash/rule out shingles Time Seen by Provider: 03/23/24 00:29 Source: patient Mode of arrival: Ambulatory Limitations: no limitations History of Present Illness HPI narrative: 83-year-old male with appearance of right upper chest wall itchy painful burning rash, first noted yesterday, increasing through the day today. No previous history of zoster rashes. No history of chemotherapy or diabetes. No injuries, known skin [place]. No new creams or lotions. No fevers or chills. No treatment attempted so far. No other skin areas affected. No swelling of lips eyelids tongue. No hives or itching. Related Data Home Medications Medication Instructions Recorded Confirmed omeprazole 20 mg capsule,delayed 20 mg PO DAILY 08/25/21 01/30/24 release Previous Rx's Medication Instructions Recorded tamsulosin 0.4 mg capsule (Flomax) 0.4 mg PO BID #60 caps 01/08/23 valacyclovir 1 gram tablet 1,000 mg PO BID Zoster rash 10 03/23/24 days #20 tabs Allergies Allergy/AdvReac Type Severity Reaction Status Date / Time No Known Drug Allergies Allergy Verified 08/01/23 09:39 Review of Systems Review of Systems ROS Unobtainable: All systems reviewed & are unremarkable except as noted in HPI and below Patient History Medical History (Updated 03/23/24 @ 01:01 by Kevin Ortega MD) Left renal stone History of bladder stone Sepsis (09/04/21) Incomplete emptying of bladder Pneumonia Urinary catheter in place Abnormal prostate by palpation Benign prostatic hyperplasia Acute urinary retention Bilateral recurrent inguinal hernia Basal cell carcinoma GERD (gastroesophageal reflux disease) Surgical History (Updated 12/21/22 @ 14:57 by Carolina Khan RN) Hx of right inguinal hernia repair (11/28/22) History of hernia repair History of cataract surgery (2020) Hx of appendectomy Social History household members: spouse Smoking Status: Never smoker alcohol intake: current Smoking Status: Never smoker alcohol intake frequency: holidays/special occasions only Substance Use Type: does not use Exam Narrative Exam Narrative: No distress, ambulating in exam room on first contact Initial Vital Signs Initial Vital Signs: Vital Signs Temperature 98.5 F 03/22/24 20:25 Pulse Rate 64 03/22/24 20:25 Respiratory Rate 18 03/22/24 20:25 Blood Pressure 139/71 03/22/24 20:25 Pulse Oximetry 99 03/22/24 20:25 Oxygen Delivery Method Room Air 03/22/24 20:25 Const General: cooperative [facility] [place] Head: atraumatic Ears: external ears normal and TM's normal bilaterally Face and sinus: face symmetric Mouth: moist mucous membranes Eyes Eyelids: eyelids normal Conjunctivae: conjunctivae normal Sclera: sclerae normal Neck Neck: normal visual inspection and trachea midline Chest Chest: normal inspection of the chest Other: Right upper thoracic patchy rash in dermatomal T3 distribution extending from midline posteriorly to anterior to midline, not crossing midline, above the nipple levels on right anterior thorax, consistent with zoster eruption, no obvious cellulitis superinfection changes at this time Resp Effort & Inspection: normal respiratory effort, able to speak in complete sentences and no respiratory distress Auscultation: clear to auscultation bilaterally, no rales, no rhonchi and no wheezes Cardio Rate: regular rate Rhythm: regular rhythm Heart Sounds: no murmurs GI Inspection: non-distended Palpation: No guarding and No tender Back/Spine/Pelvis Cervical Spine: cervical ROM normal Skin General: No petechiae Other: Upper right thoracic cutaneous zoster like patchy rash T3-T4 dermatomal distribution as described in chest section, no other skin lesions. Neuro General: patient alert, gait normal and no focal motor deficits Speech: speech normal Extrem General: no pedal edema Psych Attitude: cooperative Thought Content: normal Course Orders Ordered: Discontinued Medications Valacyclovir HCl (Valacyclovir 500 Mg Tablet) 1,000 mg PO NOW ONE Stop: 03/22/24 23:32 Last Admin: 03/22/24 23:48 Dose: 1,000 mg Documented By: LOUIE Vital Signs Vital signs: Vital Signs - 8 hr 03/22/24 20:25 Temperature 98.5 F Pulse Rate 64 Respiratory Rate 18 Blood Pressure 139/71 Pulse Oximetry 99 Oxygen Delivery Method Room Air Discharge Plan Departure Patient Disposition: Home Clinical Impression: Shingles Instructions: DI for Shingles Activity Restrictions/Additional Instructions: Burning itchy rash to upper right chest since yesterday, consistent with shingles rash due to herpes zoster virus. First dose anti viral valve acyclovir given by mouth, continue treatment for 10 days. Follow up with your regular doctor in next 2-3 days to reassess for improvement of symptoms, and also to make sure there is no skin superinfection with bacteria. Return earlier to this/nearest emergency department for any change worsening symptoms or any concerns prior Prescriptions: New valacyclovir 1 gram tablet 1,000 mg PO BID 10 Days Qty: 20 0RF No Action tamsulosin [Flomax] 0.4 mg capsule 0.4 mg PO BID Qty: 60 11RF Rx Instructions: Take 1 capsule 1-1 1/2 hrs after breakfast and 1 capsule at bedtime omeprazole 20 mg capsule,delayed release(DR/EC) 20 mg PO DAILY Referrals: Samia Kapoor MD [Primary Care Provider] - Stand Alone Forms: Patient Portal/API
== END 2024-03-23 01:11 | disposition home or self-care (01) ==
PROVIDERS: Emergency Provider Emergency Medicine; Family Provider Family Medicine; PCP Family Medicine
DX: B02.9 Zoster without complications (principal)
CPT/HCPCS: 99283

== ENCOUNTER 2024-08-05 19:04 | Emergency (ER) | payer MEDICARE, SELFPAY ==
[2022-11-28 18:00] VITALS: BMI 21.8
[2024-08-05] VITALS (13 sets, daily range): BP systolic 114–128; BP diastolic 58–68; PULSE 78–96; RESP 17–24; TEMP 37.2; O2SAT 95–98; BMI 21.2
--- NOTE | 2024-08-05 19:16 | EKG_ITS ---
[facility] [address] [place] [address] Test Date: 2024-08-05 Pat Name: Kyle Jovel Department: [facility] Room: Gender: Male [employer] Operator: JOVANI : 1940 Requested By: Order Number: [id number] Reading MD: Onur Rosenberg MD Measurements Intervals [place] Rate: 88 P: 42 MT: 280 QRS: 1 QRSD: 80 T: 48 QT: 342 QTc: 413 Interpretive Statements Sinus rhythm with 1st degree AV block Nonspecific ST abnormality Electronically Signed On 08-06-2024 7:58:19 PDT by Onur Rosenberg MD
[2024-08-05 19:36] LABS: Add Manual Diff / Slide Review NO; Basophils Absolute Auto 100 /uL (0-100); Basophils Percent Auto 0.4 % (0-2); Eosinophils Absolute Auto 200 /uL (0-450); Eosinophils Percent Auto 1.5 % (2-4); Hematocrit 38.6 % (41-53); Lymphocytes Absolute Auto 1900 /uL (1100-4500); Lymphocytes Percent Auto 12.6 % (25-40); Mean Corpuscular HGB Conc 33.7 % (30-36); Mean Corpuscular Volume 83.1 fL (80-100); Monocytes Absolute Auto 1600 /uL (0-900); Monocytes Percent Auto 10.1 % (3-14); Neutrophils Absolute Auto 11700 /uL (1500-7000); Neutrophils Percent Auto 75.4 % (50-75); Platelet Count 260 X10^3/uL (150-400); Red Blood Cell Count 4.64 X10^6/uL (4.5-5.9); Red Cell Distribution Width 14.3 % (11.6-14.8); White Blood Cell Count 15.5 X10^3/uL (4.5-11.0)
--- NOTE | 2024-08-05 19:48 | ED_ITS ---
HPI - Nausea/Vomiting/Diarrhea General Chief complaint: Nausea/Vomiting/Diarrhea Stated complaint: diarrhea, hx c-diff, fall, headache Time Seen by Provider: 08/05/24 19:48 Source: patient Mode of arrival: Ambulatory History of Present Illness HPI Narrative: 83-year-old male complains of diarrhea for the last 4-5 days, 4 days ago had ground level fall and struck the back of his head without loss of consciousness, no neck pain, no pain to arm leg or face. Denies chest pain. He is still having ongoing stooling, multiple stools daily for the last few days, has generalized weakness. He had some nausea not current. He does not have trouble breathing. There has been no black or red stools. No mucoid stools. He has had a history of C diff infection diagnosed 2 months ago, recalls oral antibiotic course, and symptoms got better. He has not been on any oral antibiotics the last couple of weeks/days. Related Data Home Medications Medication Instructions Recorded Confirmed omeprazole 20 mg capsule,delayed 20 mg PO DAILY 08/25/21 01/30/24 release Previous Rx's Medication Instructions Recorded tamsulosin 0.4 mg capsule (Flomax) 0.4 mg PO BID #60 caps 01/08/23 vancomycin 125 mg capsule 125 mg PO QID 10 days #40 caps 08/06/24 Allergies Allergy/AdvReac Type Severity Reaction Status Date / Time No Known Drug Allergies Allergy Verified 08/05/24 19:10 Review of Systems Review of Systems Narrative: see HPI Patient History Medical History (Updated 08/05/24 @ 20:16 by Kevin Ortega MD) Left renal stone History of bladder stone Sepsis (09/04/21) Incomplete emptying of bladder Pneumonia Urinary catheter in place Abnormal prostate by palpation Benign prostatic hyperplasia Acute urinary retention Bilateral recurrent inguinal hernia Basal cell carcinoma GERD (gastroesophageal reflux disease) Surgical History (Updated 12/21/22 @ 14:57 by Carolina Khan RN) Hx of right inguinal hernia repair (11/28/22) History of hernia repair History of cataract surgery (2020) Hx of appendectomy Social History household members: spouse Smoking Status: Never smoker alcohol intake: current Smoking Status: Never smoker alcohol intake frequency: holidays/special occasions only Substance Use Type: does not use Exam Narrative Exam Narrative: GENERAL: Well-developed patient, in mild distress. HEAD: Atraumatic. Normocephalic. EYES: Pupils equal round and reactive. Extraocular motions intact. No scleral icterus. No injection or drainage. ENT: Nose without bleeding, purulent drainage. Throat without erythema, tonsillar hypertrophy or exudate. Dry appearing oral mucous membranes and tongue. Airway patent. NECK: Trachea midline. Non tender CARDIOVASCULAR: Regular rate and rhythm without murmurs, gallops, or rubs. RESPIRATORY: Clear to auscultation. Breath sounds equal bilaterally. No wheezes, rales, or rhonchi. GASTROINTESTINAL: Abdomen soft, non-tender, nondistended. EXTREMITIES: No edema or joint tenderness. BACK: Nontender without deformity or crepitance. No flank tenderness. NEURO: AOx3. Motor functions grossly nonfocal SKIN: No rash or erythema of visible areas Initial Vital Signs Initial Vital Signs: Vital Signs Temperature 98.9 F 08/05/24 19:10 Pulse Rate 96 H 08/05/24 19:10 Respiratory Rate 17 08/05/24 19:10 Blood Pressure 128/59 L 08/05/24 19:10 Pulse Oximetry 98 08/05/24 19:10 Oxygen Delivery Method Room Air 08/05/24 19:10 Course Orders Ordered: ED Orders 08/05/24 19:16 EKG-12 Lead Stat 08/05/24 19:23 Complete Blood Count AUTO DIFF Stat Comprehensive Metabolic Panel Stat Lipase Stat 08/05/24 22:02 GI Panel (Film Array) Stat Urinalysis and Microscopic Stat Discontinued Medications Sodium Chloride (Normal Saline 0.9%) 1,000 mls @ 1,000 mls/hr IV BOLUS ONE Stop: 08/05/24 21:22 Last Infusion: 08/05/24 21:40 Dose: Infused Documented By: Admin: 08/05/24 20:41 Dose: 1,000 mls/hr Documented By: ELAN Ondansetron HCl (Ondansetron 4 Mg/2 Ml Inj) 4 mg IV NOW PRN PRN Reason: Nausea And Vomiting Ondansetron HCl (Ondansetron 4 Mg Odt) 4 mg PO NOW PRN PRN Reason: Nausea And Vomiting Vancomycin HCl (Vancomycin 125 Mg Capsule) 125 mg PO NOW ONE Stop: 08/05/24 23:34 Last Admin: 08/06/24 00:14 Dose: 125 mg Documented By: JEFFERY Vital Signs Vital signs: Vital Signs - 8 hr 08/05/24 19:10 08/05/24 19:29 08/05/24 19:30 Temperature 98.9 F Pulse Rate 96 H 90 88 Respiratory Rate 17 24 20 Blood Pressure 128/59 L Pulse Oximetry 98 96 Oxygen Delivery Method Room Air Room Air 08/05/24 20:00 08/05/24 20:30 08/05/24 20:42 Temperature Pulse Rate 88 86 Respiratory Rate 22 22 Blood Pressure 119/62 Pulse Oximetry 95 96 Oxygen Delivery Method Room Air 08/05/24 20:42 08/05/24 21:00 08/05/24 21:00 Temperature Pulse Rate 84 80 Respiratory Rate 22 22 Blood Pressure 124/68 Pulse Oximetry 96 98 Oxygen Delivery Method Room Air 08/05/24 21:30 08/05/24 21:30 08/05/24 22:00 Temperature Pulse Rate 82 85 Respiratory Rate 21 24 Blood Pressure 114/67 Pulse Oximetry 97 96 Oxygen Delivery Method Room Air 08/05/24 22:03 08/05/24 22:03 08/05/24 22:30 Temperature Pulse Rate 84 81 Respiratory Rate 21 21 Blood Pressure 125/67 Pulse Oximetry 97 95 Oxygen Delivery Method Room Air 08/05/24 22:30 08/05/24 23:00 08/05/24 23:00 Temperature Pulse Rate 79 Respiratory Rate 20 Blood Pressure 122/60 119/58 L Pulse Oximetry 95 Oxygen Delivery Method Room Air 08/05/24 23:30 08/05/24 23:30 08/06/24 00:00 Temperature Pulse Rate 78 Respiratory Rate 20 Blood Pressure 125/60 119/59 L Pulse Oximetry 95 Oxygen Delivery Method 08/06/24 00:00 Temperature Pulse Rate 79 Respiratory Rate 19 Blood Pressure Pulse Oximetry 97 Oxygen Delivery Method Room Air MDM - Nausea/Vomiting/Diarrhea Lab Data 08/05/24 19:23 08/05/24 19:23 Labs: Lab Results 08/05/24 08/05/24 Range/Units 19:23 22:02 WBC 15.5 H (4.5-11.0) X10^3/uL RBC 4.64 (4.5-5.9) X10^6/uL Hgb 13.0 L (13.5-17.5) g/dL Hct 38.6 L (41-53) % MCV 83.1 (80-100) fL MCH 28.0 (26-34) PG MCHC 33.7 (30-36) % RDW 14.3 (11.6-14.8) % Plt Count 260 (150-400) X10^3/uL Neut % (Auto) 75.4 H (50-75) % Lymph % (Auto) 12.6 L (25-40) % Peach % (Auto) 10.1 (3-14) % Eos % (Auto) 1.5 L (2-4) % Baso % (Auto) 0.4 (0-2) % Neut # (Auto) 39666 H (7259-8119) /uL Lymph # (Auto) 1900 (8974-6151) /uL Peach # (Auto) 1600 H (0-900) /uL Eos # (Auto) 200 (0-450) /uL Baso # (Auto) 100 (0-100) /uL Sodium 135 L (137-145) mmol/L Potassium 4.3 (3.4-5.1) mmol/L Chloride 103 (98-107) mmol/L Carbon Dioxide 24 (22-32) mmol/L BUN 21 H (9-20) mg/dL Creatinine 0.96 (0.66-1.25) mg/dL Estimated GFR > 60 (>60) mL/min BUN/Creatinine Ratio 21.9 (6-22) Glucose 112 H (80-110) mg/dL Calcium 8.9 (8.4-10.2) mg/dL Total Bilirubin 1.4 H (0.2-1.3) mg/dL AST 17 (17-59) IU/L ALT 11 (<50) IU/L Alkaline Phosphatase 59 (38-126) U/L Total Protein 7.1 (6.3-8.2) g/dL Albumin 3.7 (3.5-5.0) g/dL Globulin 3.4 (1.7-4.1) g/dL Albumin/Globulin Ratio 1.1 (1.0-2.8) Lipase 62 (23-300) U/L Urine Color Yellow Urine Appearance Clear Urine pH 6.0 (4.5-8.0) Ur Specific [place] 1.020 (1.000-1.035) Urine Protein Trace H (Negative) Urine Glucose (UA) Negative (Negative) g/dL Urine Ketones 2+ H (NEGATIVE) Urine Occult Blood Negative (Negative) Urine Nitrate Negative (Negative) Urine Bilirubin Negative (NEGATIVE) Urine Urobilinogen 2.0 H (0.2) E.U./dL Ur Leukocyte Esterase Negative (NEGATIVE) Urine RBC None seen (0-5/HPF) Urine WBC None seen (0-5/HPF) Ur Squamous Epith Cells 0-1 /hpf (0-5/HPF) Urine Bacteria None seen (None) Ur Culture Indicated? Cult not indicated Vol Urine Centrifuged 10ml (spun) Stl C. cayetanensis PCR Not detected (Not Detect) Stool Rotavirus (PCR) Not detected (Not Detect) Stool Adenovirus (PCR) Not detected (Not Detect) Stool Astrovirus (PCR) Not detected (Not Detect) Stool Cryptosporidium PCR Not detected (Not Detect) Stl E.coli Shiga Tox PCR Not detected (Not Detect) St Sh/Enteroin Ecoli PCR Not detected (Not Detect) Stl Enterotoxigenic E PCR Not detected (Not Detect) Stool EPEC (PCR) Not detected (Not Detect) Stl E. histolytica PCR Not detected (Not Detect) Stool Giardia Lamblia PCR Not detected (Not Detect) Stool Sapovirus (PCR) Not detected (Not Detect) Stl P. shigelloides PCR Not detected (Not Detect) St Y.enterocolitica PCR Not detected (Not Detect) Stool Vibrio (PCR) Not detected (Not Detect) Stl Vibrio cholerae PCR Not detected (Not Detect) Stl Enteroaggr Ecoli PCR Not detected (Not Detect) Stl Norovirus GI/GII PCR Not detected (Not Detect) Campylobacter (PCR) Not detected (Not Detect) C. difficile Tox (PCR) Detected H (Not Detect) Salmonella (PCR) Not detected (Not Detect) ECG Data Attestation: I personally reviewed and interpreted this ECG as follows: Interpretation: Normal sinus rhythm with a rate of 88, no obvious ST segment elevation or depression changes. NJ 280, QRS 80, QTC 413. MDM Narrative Medical decision making narrative: 83-year-old male with history of C diff enteric infection recent months, now with new diarrhea, no fevers or chills. No black or red color. Afebrile on triage, sirs screen negative. Abdomen appears benign. No recent course of oral antibiotic after vancomycin course for C diff 2 months ago. Recent fall 5 days ago with head trauma, no obvious traumatic sequelae on exam, neck seems benign. Abdomen soft nontender. Labs and stool studies. Generalized weakness, dry oral mucous membranes, suspect dehydration, IV fluid bolus. Requested. Complaint of posterior headache, improved with IV fluids and no other specific treatment, trauma fall few days ago, we discussed CT head scanning, he declines this for now. 2200, he feels better after IV fluid bolus. Just gave stool specimen, await stool study results including C diff Stool specimen was obtained, positive for C diff, negative for other pathogens tested. Oral vancomycin dose given, prescription for further vancomycin course. Home with . Enteric precautions discussed. Suggested in discharge paperwork to consider follow up stool testing to document clearance of C diff infection. Encouraged oral hydration. Discharge Plan Departure Patient Disposition: Home Clinical Impression: Diarrhea, Dehydration, Generalized weakness Activity Restrictions/Additional Instructions: Generalized weakness in context of recent diarrhea. History of C diff infection of the intestines 2 months ago, status post oral antibiotic treatment, improved. No subsequent intercurrent antibiotic exposures. Frequent stooling and generalized weakness, improved strength after IV fluids in the emergency department. Stool specimen eventually obtained, sent for lab for testing, positive for C diff, negative for all other enteric stool pathogens tested. We will give oral vancomycin 1st dose in the emergency department, course of treatment oral prescription further vancomycin sent to your pharmacy. Careful to avoid spread of infection to family members and close context. Consider repeat stool testing after course of therapy to document clearance of the infection. Follow up with your regular doctor if not improving in the next couple of days. Recheck this/nearest emergency department for any change worsening symptoms or any concerns prior Prescriptions: New vancomycin 125 mg capsule 125 mg PO QID 10 Days Qty: 40 0RF No Action tamsulosin [Flomax] 0.4 mg capsule 0.4 mg PO BID Qty: 60 11RF Rx Instructions: Take 1 capsule 1-1 1/2 hrs after breakfast and 1 capsule at bedtime omeprazole 20 mg capsule,delayed release(DR/EC) 20 mg PO DAILY Referrals: Samia Kapoor MD [Primary Care Provider] - Stand Alone Forms: Patient Portal/API
[2024-08-05 19:49] LABS: Alanine Aminotransferase 11 IU/L (<50); Albumin 3.7 g/dL (3.5-5.0); Albumin Globulin Ratio 1.1 (1.0-2.8); Alkaline Phosphatase 59 U/L (38-126); Aspartate Aminotransferase 17 IU/L (17-59); BUN Creatinine Ratio 21.9 (6-22); Bilirubin Total 1.4 mg/dL (0.2-1.3); Blood Urea Nitrogen 21 mg/dL (9-20); Calcium 8.9 mg/dL (8.4-10.2); Carbon Dioxide 24 mmol/L (22-32); Chloride 103 mmol/L (98-107); Estimated Glomerular Filt Rate > 60 mL/min (>60); Globulin 3.4 g/dL (1.7-4.1); Glucose 112 mg/dL (80-110); HEMOLYSIS < 15 (0-50); Lipase 62 U/L (23-300); Potassium 4.3 mmol/L (3.4-5.1); Sodium 135 mmol/L (137-145); Total Protein 7.1 g/dL (6.3-8.2)
[2024-08-05] MEDS: SODIUM CHLORIDE 0.9% 1,000 ML 1000 ML IV (20:41)
--- NOTE | 2024-08-05 20:56 | PC.NURSE ---
Asked patient if he could provide a stool and urine sample, patient states he is unable to right now. IV fluids running. Will reassess again. Call light in reach.
--- NOTE | 2024-08-05 21:42 | PC.NURSE ---
Patient on the commode attempting to have a BM.
[2024-08-05 22:19] LABS: Appearance Urine UA CLEAR; Bilirubin Urine UA NEGATIVE (NEGATIVE); Color Urine UA YELLOW; Glucose Urine UA NEGATIVE (Negative); Ketones Urine UA 2+ (NEGATIVE); Leukocyte Esterase Urine UA NEGATIVE (NEGATIVE); Nitrite Urine UA NEGATIVE (Negative); Occult Blood Urine UA NEGATIVE (Negative); Protein Urine UA TRACE (Negative)
[2024-08-05 22:25] LABS: Bacteria Urine None Seen; RBC Urine None Seen (0-5/HPF); WBC Urine None Seen (0-5/HPF)
[2024-08-05 22:26] LABS: Culture Indicated Urine Cult Not Indicated; Squamous Epithelial Cell Urine 0-1 /HPF (0-5/HPF); Urine Volume 10mL (spun)
[2024-08-05 23:23] LABS: Adenovirus F 40/41 Not Detected (Not Detect); Astrovirus Not Detected (Not Detect); Campylobacter Not Detected (Not Detect); Clostridium difficile toxin AB Detected (Not Detect); Cryptosporidium Not Detected (Not Detect); Cyclospora cayetanensis Not Detected (Not Detect); Entamoeba histolytica Not Detected (Not Detect); Enteroaggregative E.coli Not Detected (Not Detect); Enteropathogenic E.coli Not Detected (Not Detect); Enterotoxigenic E.coli It/st Not Detected (Not Detect); Giardia lamblia Not Detected (Not Detect); Norovirus GI/GII Not Detected (Not Detect); Plesiomonsa shigelloides Not Detected (Not Detect); Rotavirus A Not Detected (Not Detect); Salmonella Not Detected (Not Detect); Sapovirus Not Detected (Not Detect); Shiga-like toxin-prod E.coli Not Detected (Not Detect); Shigella/Enteroinvasive E.coli Not Detected (Not Detect); Vibrio Not Detected (Not Detect); Vibrio cholerae Not Detected (Not Detect); Yersinia enterocolitica Not Detected (Not Detect)
[2024-08-06] VITALS: BP 119/59; PULSE 79; RESP 19; O2SAT 97
[2024-08-06] MEDS: VANCOMYCIN 125 MG CAPSULE PO (00:14)
[2024-08-07 15:11] LABS: C difficie Toxins A and B, EIA Positive (Negative)
== END 2024-08-06 00:22 | disposition home or self-care (01) ==
PROVIDERS: Emergency Provider Emergency Medicine; Family Provider Family Medicine; PCP Family Medicine
DX: R19.7 Diarrhea, unspecified (principal); E86.0 Dehydration; R53.1 Weakness; I44.0 Atrioventricular block, first degree
CPT/HCPCS: 36415; 80053; 81001; 83690; 85025; 87324; 87507; 93005; 93010; 96360; 99284

== ENCOUNTER → 2024-08-21 10:57 | Outpatient (CLI) | payer MEDICARE, SELFPAY ==
[2022-11-28 18:00] VITALS: BMI 21.8
--- NOTE | 2024-08-21 10:59 | DI.RAD.S_ITS ---
PROCEDURE: XR KUB INDICATIONS: History of urinary calculi rule out left renal calculus TECHNIQUE: One view of the abdomen acquired. COMPARISON: [facility], CR, XR KUB, 01/29/2024, 14:14. FINDINGS: Stool gas pattern: Mild ileus noted with moderate colonic stool.. No free intraperitoneal or extraperitoneal air. No gross evidence of ascites Soft tissues: 3 mm calcification is seen in the left true pelvis.. No soft tissue masses. Organs: No gross evidence for organomegaly. IMPRESSION: Mild ileus with moderate colonic stool . 3 mm calcification left true pelvis likely a phlebolith. A small distal left ureteral stone Is not excluded Dictated by: Onur Bullard M.D. on 08/22/2024 at 9:09 Approved by: Onur Bullard M.D. on 08/22/2024 at 9:11
== END ==
PROVIDERS: Family Provider Family Medicine; PCP Family Medicine; Referring Provider Urology; Visit Provider Urology
DX: K56.7 Ileus, unspecified (principal); N20.0 Calculus of kidney; N40.1 Benign prostatic hyperplasia with lower urinary tract symptoms; N13.8 Other obstructive and reflux uropathy; R33.9 Retention of urine, unspecified; Z87.442 Personal history of urinary calculi; Z87.448 Personal history of other diseases of urinary system; Z87.898 Personal history of other specified conditions
CPT/HCPCS: 51798; 74018; 81002; 99213

== ENCOUNTER → 2025-02-25 08:22 | Outpatient (CLI) | payer MEDICARE, SELFPAY ==
[2022-11-28 18:00] VITALS: BMI 21.8
--- NOTE | 2025-02-25 08:24 | DI.RAD.S_ITS ---
PROCEDURE: XR KUB INDICATIONS: Follow-up kidney stones TECHNIQUE: One view of the abdomen acquired. COMPARISON: [facility], CR, XR KUB, 08/21/2024, 11:05. FINDINGS: Surgical changes and devices: None. Bowel: Moderately distended predominantly stool filled segments of large bowel throughout the abdomen and pelvis. No evidence of obstruction. Soft tissues: No suspicious abdominal calcifications. Visualized solid organ contours appear normal in size. Bones: No suspicious bony lesions. IMPRESSION: Excess retained colonic stool without evidence bowel obstruction. Dictated by: Jorge Abebe M.D. on 02/26/2025 at 1:15 Approved by: Jorge Abebe M.D. on 02/26/2025 at 1:16
== END ==
PROVIDERS: Family Provider Family Medicine; PCP Family Medicine; Referring Provider Urology; Visit Provider Urology
DX: N20.0 Calculus of kidney (principal); N40.1 Benign prostatic hyperplasia with lower urinary tract symptoms; N13.8 Other obstructive and reflux uropathy; Z87.442 Personal history of urinary calculi; Z87.898 Personal history of other specified conditions; Z87.448 Personal history of other diseases of urinary system; R33.9 Retention of urine, unspecified; Z68.22 Body mass index [BMI] 22.0-22.9, adult
CPT/HCPCS: 74018; 81002; 99213

== ENCOUNTER 2025-09-16 13:41 | Emergency (ER) | payer MEDICARE, SELFPAY ==
[2025-04-10 09:22] VITALS: BMI 21.8
[2025-09-16 13:59] VITALS: BP 152/75; PULSE 73; RESP 18; TEMP 36.3; O2SAT 99; BMI 23.0
--- NOTE | 2025-09-16 14:08 | DI.CT.S_ITS ---
PROCEDURE: CT ABDOMEN PELVIS W CON
--- NOTE | 2025-09-16 14:09 | ED_ITS ---
HPI - Male Genitourinary
--- NOTE | 2025-09-16 14:09 | ED.MALEGU ---
HPI - Male Genitourinary General Chief complaint: Urogenital-Male Stated complaint: problem peeing Time Seen by Provider: 09/16/25 13:59 History of Present Illness HPI Narrative: Mr. Jovel is a very pleasant 84-year-old male with a past medical history of urinary retention, nephrolithiasis, appendectomy, hernia repair who presents to the emergency department for urinary retention x 20 hours. Patient states he has not urinated in 20 hours, he is now having lower abdominal discomfort, he has been constipated recently however he is now passing bowel movements. Reports he had urinary retention after hernia surgery 4-5 years ago and required Alcantar catheter. He used to see urology Dr. Lopez, he will be seeing Dr. Durand in 2 weeks. He denies dysuria or hematuria leading up to his symptoms, no flank or back pain. Denies chest pain, shortness of breath, fevers, chills, lower extremity edema. He denies history of prostate cancer. Related Data Home Medications ?Medication ?Instructions ?Recorded ?Confirmed cholecalciferol (vitamin D3) PO 04/16/25 04/16/25 lactobacillus combination no.9 PO 04/16/25 04/16/25 [Adult 50 Plus Probiotic] vit J-S-xjbnyo-zinc-lutein PO 04/16/25 04/16/25 [PreserVision Lutein] Previous Rx's ?Medication ?Instructions ?Recorded tamsulosin 0.4 mg capsule (Flomax) 0.4 mg PO DAILY 7 days #7 caps 09/16/25 Allergies Allergy/AdvReac Type Severity Reaction Status Date / Time No Known Drug Allergies Allergy Verified 04/16/25 09:30 Review of Systems Review of Systems ROS Unobtainable: All systems reviewed & are unremarkable except as noted in HPI and below Patient History Medical History History of kidney stones BPH with obstruction/lower urinary tract symptoms Bilateral renal stones History of urinary retention Left renal stone History of bladder stone Sepsis (09/04/21) Incomplete emptying of bladder Pneumonia Urinary catheter in place Abnormal prostate by palpation Benign prostatic hyperplasia Acute urinary retention Bilateral recurrent inguinal hernia Basal cell carcinoma GERD (gastroesophageal reflux disease) Surgical History Hx of right inguinal hernia repair (11/28/22) History of hernia repair History of cataract surgery (2020) Hx of appendectomy Family History Mother No problems noted. Social History marital status: household members: spouse lives independently: Yes occupational status: previously employed Smoking Status: Never smoker alcohol intake: current substance use type: does not use Smoking Status: Never smoker alcohol intake frequency: holidays/special occasions only Exam Narrative Exam Narrative: GENERAL: 84 year old patient appears stated age. Well-developed patient, in no acute distress. HEAD: Atraumatic. Normocephalic. EYES: No scleral icterus. No injection or drainage. NECK: Trachea midline. Cervical ROM intact. CARDIOVASCULAR: Regular rate and rhythm. RESPIRATORY: ?Nonlabored respirations. ?Speaking in clear, full sentences. ?Clear to auscultation. Breath sounds equal bilaterally. No wheezes, rales, or rhonchi. ? GASTROINTESTINAL: Abdomen soft, non-distended. Mild TTP suprapubic region. No rebound or guarding. BACK: No CVA tenderness. NEURO: AOx3. ?Clear speech. ?Moves all 4 extremities appropriately. BL UE tremor at rest, reported baseline. SKIN: No rash or erythema of visible areas Initial Vital Signs Initial Vital Signs: Vital Signs Temperature 97.4 F L 09/16/25 13:59 Pulse Rate 73 09/16/25 13:59 Respiratory Rate 18 09/16/25 13:59 Blood Pressure 152/75 H 09/16/25 13:59 Pulse Oximetry 99 09/16/25 13:59 Oxygen Delivery Method Room Air 09/16/25 13:59 Course Orders Ordered: Discontinued Medications Lidocaine HCl (Lidocaine 2% (Glydo) 6 Ml Gel) 6 ml TOP NOW ONE Stop: 09/16/25 14:23 Last Admin: 09/16/25 14:28 Dose: 6 ml Documented By: [place] Lidocaine HCl (Lidocaine 2% (Glydo) 6 Ml Gel) 6 ml TOP NOW ONE Stop: 09/16/25 14:25 Last Admin: 09/16/25 14:58 Dose: Not Given Documented By: [place] Vital Signs Vital signs: Vital Signs - 8 hr 11/05/25 13:59 Temperature 97.4 F L Pulse Rate 73 Respiratory Rate 18 Blood Pressure 152/75 H Pulse Oximetry 99 Oxygen Delivery Method Room Air MDM - Male Genitourinary Medical Records Attestation: I reviewed the patient's medical records. Lab Data 09/16/25 14:40 09/16/25 14:40 Labs: Lab Results 09/16/25 Range/Units 14:40 WBC 6.8 (4.5-11.0) X10^3/uL RBC 4.42 L (4.5-5.9) X10^6/uL Hgb 12.5 L (13.5-17.5) g/dL Hct 36.8 L (41-53) % MCV 83.2 (80-100) fL MCH 28.2 (26-34) PG MCHC 33.9 (30-36) % RDW 13.9 (11.6-14.8) % Plt Count 211 (150-400) X10^3/uL Neut % (Auto) 58.5 (50-75) % Lymph % (Auto) 27.3 (25-40) % [place] % (Auto) 12.1 (3-14) % Eos % (Auto) 1.7 L (2-4) % Baso % (Auto) 0.4 (0-2) % Neut # (Auto) 4000 (5468-2912) /uL Lymph # (Auto) 1800 (3379-1762) /uL [place] # (Auto) 800 (0-900) /uL Eos # (Auto) 100 (0-450) /uL Baso # (Auto) 0 (0-100) /uL Sodium 137 (137-145) mmol/L Potassium 3.9 (3.4-5.1) mmol/L Chloride 105 (98-107) mmol/L Carbon Dioxide 21 L (22-32) mmol/L BUN 23 H (9-20) mg/dL Creatinine 0.95 (0.66-1.25) mg/dL Estimated GFR > 60 (>60) mL/min BUN/Creatinine Ratio 24.2 H (6-22) Glucose 95 (70-99) mg/dL Calcium 8.9 (8.4-10.2) mg/dL Total Bilirubin 2.1 H (0.2-1.3) mg/dL AST 32 (17-59) IU/L ALT 14 (<50) IU/L Alkaline Phosphatase 50 (38-126) U/L Total Protein 7.6 (6.3-8.2) g/dL Albumin 4.4 (3.5-5.0) g/dL Globulin 3.2 (1.7-4.1) g/dL Albumin/Globulin Ratio 1.4 (1.0-2.8) Lipase 24 (23-300) U/L Urine Color Yellow Urine Appearance Clear Urine pH 5.5 (4.5-8.0) Ur Specific [place] 1.020 (1.000-1.035) Urine Protein Negative (Negative) Urine Glucose (UA) Negative (Negative) g/dL Urine Ketones Trace H (NEGATIVE) Urine Occult Blood Negative (Negative) Urine Nitrate Negative (Negative) Urine Bilirubin Negative (NEGATIVE) Urine Urobilinogen 0.2 (0.2) E.U./dL Ur Leukocyte Esterase Negative (NEGATIVE) Urine RBC None seen (0-5/HPF) Urine WBC None seen (0-5/HPF) Ur Squamous Epith Cells None seen (0-5/HPF) Calcium Oxalate Crystal Few H Urine Bacteria None seen (None) Vol Urine Centrifuged 10ml (spun) Imaging Data CT scan - abdomen/pelvis: Radiologist's Impression: PROCEDURE: CT ABDOMEN PELVIS W CON INDICATIONS: urinary retention; constipation; lower abd pain TECHNIQUE: After the administration of intravenous contrast, axial sections acquired from the lung bases to the pubic symphysis. Coronal and sagittal reformats were performed. For radiation dose reduction, the following was used: automated exposure control, adjustment of mA and/or kV according to patient size. COMPARISON: [facility], CT, CT ABDOMEN WO CON, 02/18/2024, 14:00. [facility], CR, XR KUB, 02/25/2025, 8:19. FINDINGS: Image quality: Diagnostic. Lower Chest: A small hiatal hernia is incidentally noted. ABDOMEN: Liver: No solid mass. Nonenhancing liver cysts are seen. Gallbladder: A gallstone is seen. No additional CT findings of cholecystitis are seen. Biliary ducts: No biliary dilation. Pancreas: No ductal dilation. Spleen: Size is within normal limits. Adrenal Glands: No adrenal nodules. Kidneys and Ureters: No hydronephrosis. No solid mass. No complex renal cystic lesion which requires follow up. Stomach and Bowel: Normal colonic caliber, without significant wall thickening. There is a moderate volume of stool seen within the colon. No dilated loops of small bowel are seen. Peritoneum: No abnormal intraperitoneal fluid. No free air. Ventral Wall: No significant ventral hernia. Abdominal Nodes: No retroperitoneal or mesenteric adenopathy by size criteria. Vessels: Aorta and inferior vena cava are normal in size. PELVIS: Pelvic Organs: The prostate is enlarged, measuring 7.2 cm transversely. Bladder: A Alcantar catheter is seen, which decompresses the bladder. Pelvic Nodes: No enlarged lymph nodes. Miscellaneous: No inguinal hernias are seen. Bones: No aggressive osseous abnormality. Focal lumbar spine degenerative changes are seen. IMPRESSION: Alcantar catheter is seen in place, with the bladder decompressed. No hydronephrosis is seen. There is a moderate volume of stool seen within the colon, which is consistent with the given clinical history of constipation. Additional findings: Small hiatal hernia Nonenhancing liver cysts Gallstone Focal lumbar spine degenerative change Enlarged prostate Dictated by: Giovany Grubbs M.D. on 09/16/2025 at 15:13 Approved by: Giovany Grubbs M.D. on 09/16/2025 at 15:16 MDM Narrative Medical decision making narrative: 84-year-old male with a past medical history of urinary retention, nephrolithiasis, appendectomy, hernia repair who presents to the emergency department for urinary retention x 20 hours. Differential diagnosis includes but is not limited to acute urinary retention, urinary obstruction, nephrolithiasis, UTI, constipation, etc. On exam the patient is in no acute distress, nontoxic appearing, vital signs appropriate. He has mild tenderness to palpation of the suprapubic region of his abdomen otherwise abdominal exam is benign, no rebound or guarding. Bladder scan does reveal volume up to 800. Indwelling Alcantar catheter was placed. Abdominal absent CT ordered for further evaluation of cause. Urinalysis reveals trace ketones, few calcium oxalate crystals, no signs of infection. Labs reveal normal WBC count 6.8, hemoglobin 12.5, platelets 211. Sodium 137, potassium 3.9. BUN 23 creatinine 0.95. Total bilirubin is slightly elevated at 2.1, it was 1.4 in the past, he is not having any right upper quadrant abdominal pain. Imaging reveals decompressed bladder, no hydronephrosis, there is a moderate amount of stool within the colon. He does have gallstone but no signs of cholecystitis, no right upper quadrant tenderness. Patient feels much better after Alcantar catheter placement. He does have an appointment with Urology in 15 days. Advised him to follow up sooner if possible. Discussed Alcantar catheter care. Discussed strict ER return precautions. Discussed importance of discussing elevated total but even gallstones PCP. Reviewed signs and symptoms to return to the ER. Patient his verbalized understanding of all information agreeable with the plan, he feels better and is stable for discharge home. Discharge Plan Departure Patient Disposition: Home Clinical Impression: Acute urinary retention, Enlarged prostate, Total bilirubin, elevated Constipation Qualifiers: Constipation type: unspecified constipation type Qualified Code(s): K59.00 - Constipation, unspecified Instructions: How to Care for Your Alcantar Catheter -- Male, DI for Urinary Retention in Men Activity Restrictions/Additional Instructions: Dear Mr. Jovel, Thank you for coming to the emergency department. Today you were evaluated for the inability to urinate. A Alcantar catheter was placed to drain her bladder. CT scan did reveal an enlarged prostate and constipation. I would like you to use MiraLax daily to help with constipation. Please follow up with Urology as soon as you are able to. Please also follow up with your primary care doctor in regards to your elevated total bilirubin and gallstone today. Please return to the emergency room if you develop severe pain, bloody urine, fevers, blockage of the catheter, shaking chills or other concerns. Please follow up with your primary care doctor within the next 2-3 days for ER follow-up. (If you do not have a PCP you can call [phone]. ?to schedule an appointment with an [facility] Primary Care Provider) IF YOU DEVELOP ANY NEW OR WORSENING SYMPTOMS, RETURN TO THE ER! Please read the attached instructions, they highlight more specific treatments and interventions for you at home. Thank you for letting me participate in your care, Laura Monet PA-C Prescriptions: New tamsulosin [Flomax] 0.4 mg capsule 0.4 mg PO DAILY 7 Days Qty: 7 0RF No Action cholecalciferol (vitamin D3) PO lactobacillus combination no.9 [Adult 50 Plus Probiotic] PO vit Z-I-rjyxpy-zinc-lutein [PreserVision Lutein] PO Referrals: Alverto Durand DO [Physician, Urology] Referral Note: urinary retention Samia Kapoor MD [Primary Care Provider, Family Practice] Stand Alone Forms: Patient Portal/API
[2025-09-16] MEDS: LIDOCAINE 2% (GLYDO) 6 ML GEL TOP (14:28)
[2025-09-16 14:56] LABS: Add Manual Diff / Slide Review NO; Hematocrit 36.8 % (41-53); Hemoglobin 12.5 g/dL (13.5-17.5); Lymphocytes Absolute Auto 1800 /uL (1100-4500); Mean Corpuscular HGB Conc 33.9 % (30-36); Mean Corpuscular Hemoglobin 28.2 PG (26-34); Mean Corpuscular Volume 83.2 fL (80-100); Platelet Count 211 X10^3/uL (150-400)
[2025-09-16 15:07] LABS: Alanine Aminotransferase 14 IU/L (<50); Albumin 4.4 g/dL (3.5-5.0); Albumin Globulin Ratio 1.4 (1.0-2.8); Alkaline Phosphatase 50 U/L (38-126); Blood Urea Nitrogen 23 mg/dL (9-20); Calcium 8.9 mg/dL (8.4-10.2); Carbon Dioxide 21 mmol/L (22-32); Chloride 105 mmol/L (98-107); Estimated Glomerular Filt Rate > 60 mL/min (>60); Globulin 3.2 g/dL (1.7-4.1); Glucose 95 mg/dL (70-99); HEMOLYSIS 20 (0-50); Lipase 24 U/L (23-300); Potassium 3.9 mmol/L (3.4-5.1); Sodium 137 mmol/L (137-145); Total Protein 7.6 g/dL (6.3-8.2)
[2025-09-16 15:20] LABS: Appearance Urine UA CLEAR; Bilirubin Urine UA NEGATIVE (NEGATIVE); Color Urine UA YELLOW; Glucose Urine UA NEGATIVE (Negative); Ketones Urine UA TRACE (NEGATIVE); Leukocyte Esterase Urine UA NEGATIVE (NEGATIVE); Nitrite Urine UA NEGATIVE (Negative); Occult Blood Urine UA NEGATIVE (Negative); Protein Urine UA NEGATIVE (Negative); Specific Gravity Urine UA 1.020 (1.000-1.035); Urobilinogen Urine UA 0.2 E.U./dL (0.2); pH Urine UA 5.5 (4.5-8.0)
[2025-09-16 16:48] VITALS: BP 126/65; PULSE 68; RESP 18; O2SAT 100
== END 2025-09-16 16:57 | disposition home or self-care (01) ==
PROVIDERS: Emergency Provider Physician Assistant; PCP Family Medicine
DX: N40.1 Benign prostatic hyperplasia with lower urinary tract symptoms (principal); R33.8 Other retention of urine; E80.6 Other disorders of bilirubin metabolism
CPT/HCPCS: 51702; 51798; 74177; 80053; 81001; 83690; 85025; 99283; 99284; Q9967

== ENCOUNTER → 2025-09-23 13:56 | Outpatient (CLI) | payer MEDICARE, SELFPAY ==
[2025-04-10 09:22] VITALS: BMI 21.8
--- NOTE | 2025-09-23 13:58 | DI.RAD.S_ITS ---
PROCEDURE: XR KUB one view, 2 images
[2025-09-23 17:06] LABS: Prostate Specific Antigen 9.11 ng/mL (0.10-4.00)
== END ==
PROVIDERS: PCP Physician Assistant; Referring Provider Urology; Visit Provider Urology
DX: N42.9 Disorder of prostate, unspecified (principal); K59.00 Constipation, unspecified; R97.20 Elevated prostate specific antigen [PSA]; Z87.442 Personal history of urinary calculi
CPT/HCPCS: 36415; 74018; 84153

== ENCOUNTER 2025-10-11 08:47 | Emergency (ER) | payer MEDICARE, SELFPAY ==
[2025-04-10 09:22] VITALS: BMI 21.8
[2025-10-11 08:59] VITALS: PULSE 84; O2SAT 91
[2025-10-11 09:00] VITALS: BP 158/76; PULSE 84; O2SAT 98
--- NOTE | 2025-10-11 09:00 | ED.MALEGU ---
HPI - Male Genitourinary General Chief complaint: Urogenital-Male Stated complaint: Has catheter but hasn't urinated all night Time Seen by Provider: 10/11/25 08:52 History of Present Illness HPI Narrative: 84-year-old gentleman medical history of urinary retention nephrolithiasis appendectomy hernia repair seen by Urology on 09/28/2025 seen by Urology with Alcantar catheter removal void trial unsuccessful as such Alcantar catheter placed again presents to ER today with decreased urine output in Alcantar bag. He has minimal abdominal pain but denies any nausea vomiting but reports diarrhea but he is on MiraLax. He was recently treated 2 months ago for C diff colitis. Patient denies fever, chills, back pain, chest pain, shortness of breath. Other than what is stated 14 point review of system is negative. Related Data Home Medications ?Medication ?Instructions ?Recorded ?Confirmed cholecalciferol (vitamin D3) PO 04/16/25 09/28/25 lactobacillus combination no.9 PO 04/16/25 09/28/25 [Adult 50 Plus Probiotic] vit X-R-ljgnax-zinc-lutein PO 04/16/25 09/28/25 [PreserVision Lutein] Previous Rx's ?Medication ?Instructions ?Recorded tamsulosin 0.4 mg capsule 0.4 mg PO DAILY #30 caps 09/22/25 nitrofurantoin 100 mg PO Q12H 5 days #10 caps 10/11/25 monohydrate/macrocrystals 100 mg capsule (Macrobid) Allergies Allergy/AdvReac Type Severity Reaction Status Date / Time No Known Drug Allergies Allergy Verified 10/11/25 09:03 Review of Systems Review of Systems ROS Unobtainable: All systems reviewed & are unremarkable except as noted in HPI and below Patient History Medical History History of kidney stones BPH with obstruction/lower urinary tract symptoms Bilateral renal stones History of urinary retention Left renal stone History of bladder stone Sepsis (09/04/21) Incomplete emptying of bladder Pneumonia Urinary catheter in place Abnormal prostate by palpation Benign prostatic hyperplasia Acute urinary retention Bilateral recurrent inguinal hernia Basal cell carcinoma GERD (gastroesophageal reflux disease) Surgical History Hx of right inguinal hernia repair (11/28/22) History of hernia repair History of cataract surgery (2020) Hx of appendectomy Family History Mother No problems noted. Social History marital status: household members: spouse lives independently: Yes occupational status: previously employed alcohol intake: current substance use type: does not use alcohol intake frequency: holidays/special occasions only Exam Narrative Exam Narrative: GENERAL: [84] year old patient appears stated age. Well-developed patient, in mild distress. HEAD: Atraumatic. Normocephalic. EYES: Pupils equal round and reactive. Extraocular motions intact. No scleral icterus. No injection or drainage. NECK: Trachea midline. Non tender CARDIOVASCULAR: Regular rate and rhythm without murmurs, gallops, or rubs. RESPIRATORY: Clear to auscultation. Breath sounds equal bilaterally. No wheezes, rales, or rhonchi. GASTROINTESTINAL: Abdomen soft, non-tender, nondistended. EXTREMITIES: No edema or joint tenderness. BACK: Nontender without deformity or crepitance. No flank tenderness. NEURO: AOx3. SKIN: No rash or erythema of visible areas Initial Vital Signs Initial Vital Signs: Vital Signs Temperature 97.2 F L 10/11/25 09:03 Pulse Rate 83 10/11/25 09:03 Respiratory Rate 18 10/11/25 09:03 Blood Pressure 158/76 H 10/11/25 09:03 Pulse Oximetry 98 10/11/25 09:03 Oxygen Delivery Method Room Air 10/11/25 09:03 Course Orders Ordered: ED Orders 10/11/25 09:27 Urinalysis and Microscopic Stat Vital Signs Vital signs: Vital Signs - 8 hr 10/11/25 09:03 Temperature 97.2 F L Pulse Rate 83 Respiratory Rate 18 Blood Pressure 158/76 H Pulse Oximetry 98 Oxygen Delivery Method Room Air MDM - Male Genitourinary MDM Narrative Medical decision making narrative: All lab work, vital signs, nurse triage note, medication list, previous ER visits, and all imaging studies reviewed. Nurse attempted to irrigate and flush Alcantar but unable to in his such new 1 was placed. Discharge Plan Departure Patient Disposition: Home Clinical Impression: Complication, blocked Alcantar catheter, Acute UTI Instructions: DI for Urinary Tract Infection (UTI) Activity Restrictions/Additional Instructions: Return with new or worsening symptoms. Follow up with urologist at your scheduled appointment. Take medication as directed. Prescriptions: New nitrofurantoin monohyd/m-cryst [Macrobid] 100 mg capsule 100 mg PO Q12H 5 Days Qty: 10 0RF Rx Instructions: must administer with a meal/food No Action tamsulosin 0.4 mg capsule 0.4 mg PO DAILY Qty: 30 0RF cholecalciferol (vitamin D3) PO lactobacillus combination no.9 [Adult 50 Plus Probiotic] PO vit L-C-fygijp-zinc-lutein [PreserVision Lutein] PO Referrals: Maxwell Wisdom PA-C [Primary Care Provider, Medical] Stand Alone Forms: Patient Portal/API
[2025-10-11 09:03] VITALS: BP 158/76; PULSE 83; RESP 18; TEMP 36.2; O2SAT 98; BMI 20.9
[2025-10-11 09:29] VITALS: BP 127/69; PULSE 76; RESP 20; O2SAT 98
[2025-10-11 09:30] VITALS: BP 128/70; PULSE 76; O2SAT 97
--- NOTE | 2025-10-11 09:50 | PC.NURSE ---
removed perez cath that patient arrived to the hospital with. I was unable to flush the cath prior to removal. pt reported he had been constipated. no urine output since yesterday
[2025-10-11 09:58] LABS: Glucose Urine UA NEGATIVE (Negative); Protein Urine UA TRACE (Negative); Specific Gravity Urine UA 1.010 (1.000-1.035); pH Urine UA 8.5 (4.5-8.0)
[2025-10-11 09:59] LABS: Bilirubin Urine UA Negative (NEGATIVE); Ketones Urine UA NEGATIVE (NEGATIVE); Nitrite Urine UA POSITIVE (Negative); Occult Blood Urine UA 2+ (Negative)
[2025-10-11 10:00] VITALS: BP 112/63; PULSE 66; O2SAT 97
[2025-10-11 10:00] LABS: Appearance Urine UA Cloudy; Leukocyte Esterase Urine UA 3+ (NEGATIVE); Urobilinogen Urine UA 0.2 E.U./dL (0.2)
[2025-10-11 10:01] LABS: Culture Indicated Urine Specimen Cultured
== END 2025-10-11 10:30 | disposition home or self-care (01) ==
PROVIDERS: Emergency Provider Family Medicine; PCP Physician Assistant
DX: T83.091A Other mechanical complication of indwelling urethral catheter, initial encounter (principal); N39.0 Urinary tract infection, site not specified; Y73.1 Therapeutic (nonsurgical) and rehabilitative gastroenterology and urology devices associated with adverse incidents
CPT/HCPCS: 51702; 51798; 81001; 87077; 87086; 87186; 99283